=== PATIENT | female | born 1965 | race African-American/Black ===

== ENCOUNTER 2017-03-14 10:05 | Inpatient (IN) | payer MEDICAID ==
[~2017-03-14] VITALS: Ht 175.3 cm; Wt 53.1 kg
[2017-03-14] VITALS (11 sets, daily range): BP systolic 55–85; BP diastolic 28–52
[2017-03-14] MEDS ORDERED: ACETAMINOPHEN 325MG TABLET PO STA (10:33)
[2017-03-14] MEDS ORDERED: SODIUM CHLORIDE 0.9% 1000ML BAG (SEPSIS BOLUS) IV ONE (10:45)
[2017-03-14] MEDS ORDERED: VANCOMYCIN 1 G PREMIX 200 ML IV SCH ×2 (11:00→13:45)
[2017-03-14 11:07] LABS: HEMATOCRIT. 36.5 % (36.0-48.0); HEMOGLOBIN. 11.6 g/dL (12.0-16.0); MEAN CORPUSCULAR HEMOGLOBIN 29.2 pg (28.0-32.0); MEAN CORPUSCULAR HGB CONC 31.8 g/dL (31.0-37.0); MEAN CORPUSCULAR VOLUME 91.8 fL (81.0-99.0); MEAN PLATELET VOLUME 9.3 fl (7.4-10.4); PLATELET 325 x1000/uL (130-400); RED BLOOD CELL COUNT 3.98 mill/uL (4.2-5.4); RED CELL DISTRIBUTION WIDTH 15.2 % (11.6-14.6); WHITE BLOOD COUNT 30.1 x1000/uL (4.5-11.0)
[2017-03-14 11:08] LABS: DIFFERENTIAL COMMENT 1
[2017-03-14 11:22] LABS: ALANINE AMINOTRANSFERASE 11 IU/L (13-61); ALBUMIN 2.3 g/dL (3.4-5.0); ANION GAP 18; CALCIUM 8.6 mg/dL (8.5-10.1); CARBON DIOXIDE 25 mEq/L (21-32); CHLORIDE 96 mEq/L (98-107); ETHANOL BLOOD < 10 mg/dL; INDEX HEMOLYSI 1 (1-3); INDEX ICTERIC 1 (1-4); INDEX LIPEMIC 1 (1-3); UREA NITROGEN BLOOD 26 mg/dL (7-21); eGFR 28 mL/min (>60)
[2017-03-14 11:27] LABS: PLATELET ESTIMATE NORMAL
[2017-03-14 11:28] LABS: ANISOCYTOSIS 1+; GIANT PLATELETS FEW
[2017-03-14] MEDS: PIPERACILLIN SODIUM/TAZOBACTAM 4.5 G in DEXT 5% WATER 100 ML IV SCH ×2 (11:58→13:02)
[2017-03-14] MEDS ORDERED: KCL 10MEQ/50ML PREMIX 100 ML IV SCH (12:15)
[2017-03-14] MEDS ORDERED: POTASSIUM CHLORIDE 20MEQ TABLET SR PO ONE (12:15)
[2017-03-14 12:19] LABS: INR 1.3; PROTHROMBIN TIME 13.1 sec
[2017-03-14 12:27] LABS: CLARITY URINE TURBID (CLEAR); COLOR URINE DARK YELLOW (YELLOW); GLUCOSE URINE NEGATIVE (NEGATIVE); KETONES URINE NEGATIVE (NEGATIVE); LEUKOCYTE ESTERASE URINE 3+ (NEGATIVE); NITRITE URINE NEGATIVE (NEGATIVE); OCCULT BLOOD URINE 3+ (NEGATIVE); PROTEIN URINE 3+ (NEGATIVE); SPECIFIC GRAVITY URINE 1.013 (1.005-1.030)
[2017-03-14] MEDS ORDERED: ACETAMINOPHEN 650MG SUPP PR ONE (12:45)
[2017-03-14 12:46] LABS: *AMPHETAMINES SCREEN URINE NEGATIVE (NEGATIVE); *BARBITURATES SCREEN URINE NEGATIVE (NEGATIVE); *BENZODIAZEPINES SCREEN URINE NEGATIVE (NEGATIVE); *COCAINE SCREEN URINE NEGATIVE (NEGATIVE); CANNABINOID URINE SCREEN NEGATIVE (NEGATIVE); ECSTASY MDMA SCREEN URINE NEGATIVE (NEGATIVE); METHADONE URINE SCREEN NEGATIVE (NEGATIVE); OPIATES URINE SCREEN NEGATIVE (NEGATIVE); PHENCYCLIDINE URINE SCREEN PRESUMTIVE POSITIVE (NEGATIVE)
[2017-03-14 13:01] LABS: BACTERIA URINE 3+; SQUAMOUS EPITHELIAL CELL URINE FEW /lpf (RARE/1+)
[2017-03-14] MEDS ORDERED: ACETAMINOPHEN 325MG TABLET PO PRN (13:45)
[2017-03-14] MEDS ORDERED: ONDANSETRON HCL 4MG/2ML VIAL IV PRN (13:45)
[2017-03-14] MEDS ORDERED: IPRATROPIUM/ALBUTEROL 0.5-3(2.5)MG/3ML NEB INH PRN (13:45)
[2017-03-14] MEDS ORDERED: MAGNESIUM/ALUMINUM HYDROXIDE/SIMETHICONE 30ML UDC PO PRN (13:45)
[2017-03-14] MEDS ORDERED: CLONIDINE 0.1MG TABLET PO PRN (13:45)
[2017-03-14 15:09] LABS: CREATINE KINASE MB FRACTION 7.6 ng/mL (0.5-3.6); MAGNESIUM 1.8 mg/dL (1.8-2.4)
[2017-03-14 15:11] LABS: TROPONIN I 0.42 ng/mL (0.00-0.04)
[2017-03-14 15:13] LABS: CALCIUM 7.2 mg/dL (8.5-10.1)
[2017-03-14 15:17] LABS: PHOSPHORUS 2.6 mg/dL (2.5-4.9)
[2017-03-14] MEDS ORDERED: ZOSYN IVPB XX SCH (17:15)
[2017-03-14] MEDS ORDERED: SODIUM CHLORIDE 0.9% 500 ML IV NR (17:30)
[2017-03-14] MEDS ORDERED: ENOXAPARIN 30MG/0.3ML SYR SUBCUT SCH (18:00)
[2017-03-14] MEDS ORDERED: POTASSIUM CHLORIDE INJ 60 MEQ in DEXT 5% WATER 500 ML IV NR (18:30)
[2017-03-14] MEDS: PIPERACILLIN/TAZ 2.25G PREMIX 50 ML IV SCH (20:05)
[2017-03-14] MEDS: SODIUM CHLORIDE 0.9% 1,000 ML IV SCH ×2 (20:10→23:09)
[2017-03-14] MEDS ORDERED: NOREPINEPHRINE 4 MG in DEXT 5% WATER 246 ML IV PRN (21:00)
[2017-03-14 22:37] LABS: CLARITY URINE TURBID (CLEAR); COLOR URINE DARK YELLOW (YELLOW); GLUCOSE URINE NEGATIVE (NEGATIVE); KETONES URINE NEGATIVE (NEGATIVE); LEUKOCYTE ESTERASE URINE 3+ (NEGATIVE); NITRITE URINE NEGATIVE (NEGATIVE); OCCULT BLOOD URINE 3+ (NEGATIVE); PROTEIN URINE 3+ (NEGATIVE); SPECIFIC GRAVITY URINE 1.013 (1.005-1.030)
[2017-03-14 23:04] LABS: RBC URINE 25-50 /hpf (0-2); WBC URINE TNTC /hpf (0-2)
[2017-03-14 23:05] LABS: BACTERIA URINE 2+; SQUAMOUS EPITHELIAL CELL URINE 1+ /lpf (RARE/1+)
[2017-03-14 23:53] LABS: CREATINE KINASE MB FRACTION 13.3 ng/mL (0.5-3.6); TROPONIN I 0.32 ng/mL (0.00-0.04)
[2017-03-15] VITALS (87 sets, daily range): BP systolic 61–159; BP diastolic 27–81
[2017-03-15] MEDS: PIPERACILLIN/TAZ 2.25G PREMIX 50 ML IV SCH ×4 (02:12→21:27)
[2017-03-15] MEDS: NOREPINEPHRINE 32 MG in DEXT 5% WATER 468 ML IV PRN (04:24)
[2017-03-15 06:12] LABS: HEMATOCRIT. 31.7 % (36.0-48.0); HEMOGLOBIN. 10.1 g/dL (12.0-16.0); MEAN CORPUSCULAR HEMOGLOBIN 29.1 pg (28.0-32.0); MEAN CORPUSCULAR HGB CONC 31.9 g/dL (31.0-37.0); MEAN CORPUSCULAR VOLUME 91.2 fL (81.0-99.0); MEAN PLATELET VOLUME 9.5 fl (7.4-10.4); PLATELET 298 x1000/uL (130-400); RED BLOOD CELL COUNT 3.47 mill/uL (4.2-5.4); RED CELL DISTRIBUTION WIDTH 15.1 % (11.6-14.6)
[2017-03-15] MEDS: SODIUM CHLORIDE 0.9% 1,000 ML IV SCH ×3 (06:22→22:12)
[2017-03-15 06:27] LABS: ALANINE AMINOTRANSFERASE 28 IU/L (13-61); ALBUMIN 1.8 g/dL (3.4-5.0); ANION GAP 19; CALCIUM 6.8 mg/dL (8.5-10.1); CARBON DIOXIDE 20 mEq/L (21-32); CHLORIDE 100 mEq/L (98-107); INDEX HEMOLYSI 1 (1-3); INDEX ICTERIC 1 (1-4); INDEX LIPEMIC 1 (1-3); UREA NITROGEN BLOOD 38 mg/dL (7-21)
[2017-03-15 06:40] LABS: HDL CHOLESTEROL 10 mg/dL (40-59); THYROID STIMULATING HORMONE 0.52 uIU/mL (0.36-3.74); TRIGLYCERIDE 96 mg/dL (0-150); eGFR 20 mL/min (>60)
[2017-03-15 06:48] LABS: LDL CHOLESTEROL 8 mg/dL (5-100)
[2017-03-15 06:55] LABS: DIFFERENTIAL COMMENT 1; WHITE BLOOD COUNT 58.2 x1000/uL (4.5-11.0)
[2017-03-15] MEDS ORDERED: VANCOMYCIN 500 MG PREMIX 100 ML IV SCH ×2 (07:00→13:00)
[2017-03-15 07:40] LABS: ANISOCYTOSIS 1+; PLATELET ESTIMATE NORMAL
[2017-03-15 08:37] LABS: MAGNESIUM 1.9 mg/dL (1.8-2.4); PHOSPHORUS 3.7 mg/dL (2.5-4.9)
[2017-03-15] MEDS ORDERED: POTASSIUM CHLORIDE INJ 40 MEQ in DEXT 5% WATER 250 ML IV NR (10:00)
[2017-03-15 11:19] LABS: AMYLASE 20 IU/L (25-115); INDEX HEMOLYSI 2 (1-3); LIPASE 43 IU/L (73-393)
[2017-03-15] MEDS: QUETIAPINE FUMARATE 25MG TABLET PO SCH ×4 (11:30→21:27)
[2017-03-15] MEDS: PANTOPRAZOLE SODIUM 40 MG/VIAL IV SCH (11:35)
[2017-03-15] MEDS ORDERED: LORAZEPAM 2MG/ML CPJ IV PRN (12:00)
[2017-03-15] MEDS: ASPIRIN 81MG TABLET PO SCH (15:58)
[2017-03-15] MEDS: ENOXAPARIN 60MG/0.6ML SYR SUBCUT SCH (17:17)
[2017-03-15] MEDS ORDERED: QUETIAPINE FUMARATE 25MG TABLET PO SCH (21:00)
[2017-03-15] MEDS: ATORVASTATIN CALCIUM 10MG TABLET PO SCH (21:27)
[2017-03-16] VITALS (95 sets, daily range): BP systolic 63–189; BP diastolic 17–99
[2017-03-16 05:40] LABS: HEMATOCRIT. 32.9 % (36.0-48.0); HEMOGLOBIN. 10.6 g/dL (12.0-16.0); MEAN CORPUSCULAR HGB CONC 32.3 g/dL (31.0-37.0); MEAN CORPUSCULAR VOLUME 89.8 fL (81.0-99.0); MEAN PLATELET VOLUME 9.6 fl (7.4-10.4); PLATELET 243 x1000/uL (130-400); RED BLOOD CELL COUNT 3.67 mill/uL (4.2-5.4); RED CELL DISTRIBUTION WIDTH 15.1 % (11.6-14.6)
[2017-03-16 05:46] LABS: DIFFERENTIAL COMMENT 1
[2017-03-16] MEDS: SODIUM CHLORIDE 0.9% 1,000 ML IV SCH ×3 (05:46→21:53)
[2017-03-16] MEDS: PIPERACILLIN/TAZ 2.25G PREMIX 50 ML IV SCH ×3 (05:46→21:11)
[2017-03-16 05:48] LABS: WHITE BLOOD COUNT 43.7 x1000/uL (4.5-11.0)
[2017-03-16 06:14] LABS: CALCIUM 7.5 mg/dL (8.5-10.1)
[2017-03-16 06:40] LABS: TROPONIN I 3.8 ng/mL (0.00-0.04)
[2017-03-16 07:36] LABS: PLATELET ESTIMATE NORMAL
[2017-03-16] MEDS: QUETIAPINE FUMARATE 25MG TABLET PO SCH ×3 (09:00→21:11)
[2017-03-16] MEDS: ASPIRIN 81MG TABLET PO SCH ×2 (09:00→09:30)
[2017-03-16] MEDS: PANTOPRAZOLE SODIUM 40 MG/VIAL IV SCH ×2 (09:00→09:30)
[2017-03-16 09:46] LABS: PHOSPHORUS 3.2 mg/dL (2.5-4.9)
[2017-03-16] MEDS ORDERED: POTASSIUM CHLORIDE INJ 60 MEQ in DEXT 5% WATER 500 ML IV SCH (10:00)
[2017-03-16] MEDS ORDERED: VANCOMYCIN 1 G PREMIX 200 ML IV SCH (11:00)
[2017-03-16] MEDS: NOREPINEPHRINE 32 MG in DEXT 5% WATER 468 ML IV PRN ×2 (12:05→23:18)
[2017-03-16] MEDS: ENOXAPARIN 60MG/0.6ML SYR SUBCUT SCH (16:00)
[2017-03-16] MEDS: ATORVASTATIN CALCIUM 10MG TABLET PO SCH (21:11)
[2017-03-17] VITALS (102 sets, daily range): BP systolic 64–130; BP diastolic 21–96
[2017-03-17] MEDS: PIPERACILLIN/TAZ 2.25G PREMIX 50 ML IV SCH ×2 (05:28→13:41)
[2017-03-17 05:34] LABS: BASOPHILS % 0.2 % (0.0-2.0); EOSINOPHILS % 1.1 % (0.0-5.0); HEMATOCRIT. 35.4 % (36.0-48.0); HEMOGLOBIN. 11.5 g/dL (12.0-16.0); LYMPHOCYTES % 7.4 % (20.0-50.0); MEAN CORPUSCULAR HEMOGLOBIN 29.2 pg (28.0-32.0); MEAN CORPUSCULAR HGB CONC 32.5 g/dL (31.0-37.0); MEAN CORPUSCULAR VOLUME 89.9 fL (81.0-99.0); MEAN PLATELET VOLUME 9.7 fl (7.4-10.4); MONOCYTES % 2.5 % (2.0-8.0); NEUTROPHILS % 88.8 % (40.0-76.0); PLATELET 233 x1000/uL (130-400); RED BLOOD CELL COUNT 3.94 mill/uL (4.2-5.4); WHITE BLOOD COUNT 23.8 x1000/uL (4.5-11.0)
[2017-03-17] MEDS: SODIUM CHLORIDE 0.9% 1,000 ML IV SCH ×2 (05:57→11:31)
[2017-03-17 06:23] LABS: ANION GAP 14; CALCIUM 7.6 mg/dL (8.5-10.1); CARBON DIOXIDE 24 mEq/L (21-32); CHLORIDE 107 mEq/L (98-107); INDEX HEMOLYSI 1 (1-3); INDEX ICTERIC 1 (1-4); INDEX LIPEMIC 1 (1-3); UREA NITROGEN BLOOD 13 mg/dL (7-21); eGFR > 60 mL/min (>60)
[2017-03-17] MEDS: ASPIRIN 81MG TABLET PO SCH (09:14)
[2017-03-17] MEDS: PANTOPRAZOLE SODIUM 40 MG/VIAL IV SCH (09:14)
[2017-03-17] MEDS: QUETIAPINE FUMARATE 25MG TABLET PO SCH ×2 (09:14→21:40)
[2017-03-17] MEDS ORDERED: ENOXAPARIN 30MG/0.3ML SYR SUBCUT SCH (11:00)
[2017-03-17] MEDS: ENOXAPARIN 40MG/0.4ML SYR SUBCUT SCH (11:28)
[2017-03-17] MEDS ORDERED: POTASSIUM CHLORIDE 20MEQ TABLET SR PO NR (12:30)
[2017-03-17] MEDS: AMPICILLIN 2,000 MG in SODIUM CHLORIDE 0.9% 100 ML IV SCH (17:36)
[2017-03-17] MEDS: ATORVASTATIN CALCIUM 10MG TABLET PO SCH (21:40)
[2017-03-18] VITALS (98 sets, daily range): BP systolic 64–143; BP diastolic 39–87
[2017-03-18] MEDS: AMPICILLIN 2,000 MG in SODIUM CHLORIDE 0.9% 100 ML IV SCH ×5 (00:17→23:22)
[2017-03-18 05:18] LABS: BASOPHILS % 0.3 % (0.0-2.0); EOSINOPHILS % 1.9 % (0.0-5.0); HEMATOCRIT. 36.3 % (36.0-48.0); HEMOGLOBIN. 11.8 g/dL (12.0-16.0); LYMPHOCYTES % 14.2 % (20.0-50.0); MEAN CORPUSCULAR HEMOGLOBIN 29.1 pg (28.0-32.0); MEAN CORPUSCULAR HGB CONC 32.4 g/dL (31.0-37.0); MEAN CORPUSCULAR VOLUME 89.7 fL (81.0-99.0); MEAN PLATELET VOLUME 9.6 fl (7.4-10.4); MONOCYTES % 4.2 % (2.0-8.0); NEUTROPHILS % 79.4 % (40.0-76.0); PLATELET 252 x1000/uL (130-400); RED BLOOD CELL COUNT 4.05 mill/uL (4.2-5.4); RED CELL DISTRIBUTION WIDTH 15.1 % (11.6-14.6); WHITE BLOOD COUNT 15.1 x1000/uL (4.5-11.0)
[2017-03-18 06:28] LABS: ANION GAP 14; CALCIUM 8.4 mg/dL (8.5-10.1); CARBON DIOXIDE 27 mEq/L (21-32); CHLORIDE 103 mEq/L (98-107); INDEX HEMOLYSI 1 (1-3); INDEX ICTERIC 1 (1-4); INDEX LIPEMIC 1 (1-3); UREA NITROGEN BLOOD 7 mg/dL (7-21); eGFR > 60 mL/min (>60)
[2017-03-18] MEDS: PANTOPRAZOLE SODIUM 40 MG/VIAL IV SCH (09:50)
[2017-03-18] MEDS: ENOXAPARIN 40MG/0.4ML SYR SUBCUT SCH (09:50)
[2017-03-18] MEDS: ASPIRIN 81MG TABLET PO SCH (09:50)
[2017-03-18] MEDS: QUETIAPINE FUMARATE 25MG TABLET PO SCH ×3 (09:50→20:34)
[2017-03-18] MEDS: POTASSIUM CHLORIDE 20MEQ TABLET SR PO SCH ×2 (10:15→20:34)
[2017-03-18] MEDS ORDERED: NOREPINEPHRINE 8 MG in DEXTROSE 5% WATER 250 ML IV PRN (19:45)
[2017-03-18] MEDS: ATORVASTATIN CALCIUM 10MG TABLET PO SCH (20:34)
[2017-03-19] VITALS (34 sets, daily range): BP systolic 67–127; BP diastolic 32–77
[2017-03-19 05:37] LABS: BASOPHILS % 0.3 % (0.0-2.0); EOSINOPHILS % 2.5 % (0.0-5.0); HEMOGLOBIN. 11.1 g/dL (12.0-16.0); LYMPHOCYTES % 18.4 % (20.0-50.0); MEAN CORPUSCULAR HEMOGLOBIN 29.1 pg (28.0-32.0); MEAN CORPUSCULAR HGB CONC 32.6 g/dL (31.0-37.0); MEAN CORPUSCULAR VOLUME 89.5 fL (81.0-99.0); MEAN PLATELET VOLUME 9.6 fl (7.4-10.4); MONOCYTES % 6.4 % (2.0-8.0); NEUTROPHILS % 72.4 % (40.0-76.0); PLATELET 311 x1000/uL (130-400); RED CELL DISTRIBUTION WIDTH 15.2 % (11.6-14.6); WHITE BLOOD COUNT 14.4 x1000/uL (4.5-11.0)
[2017-03-19] MEDS: AMPICILLIN 2,000 MG in SODIUM CHLORIDE 0.9% 100 ML IV SCH (05:43)
[2017-03-19 06:47] LABS: CHLORIDE 103 mEq/L (98-107); INDEX HEMOLYSI 1 (1-3); INDEX ICTERIC 1 (1-4); INDEX LIPEMIC 1 (1-3)
[2017-03-19 08:03] LABS: ANION GAP 15; CALCIUM 7.6 mg/dL (8.5-10.1); CARBON DIOXIDE 29 mEq/L (21-32); MAGNESIUM 1.3 mg/dL (1.8-2.4); PHOSPHORUS 4.7 mg/dL (2.5-4.9); UREA NITROGEN BLOOD 8 mg/dL (7-21); eGFR > 60 mL/min (>60)
[2017-03-19] MEDS: ENOXAPARIN 40MG/0.4ML SYR SUBCUT SCH (08:19)
[2017-03-19] MEDS: PANTOPRAZOLE SODIUM 40 MG/VIAL IV SCH (08:19)
[2017-03-19] MEDS: ASPIRIN 81MG TABLET PO SCH (08:19)
[2017-03-19] MEDS: POTASSIUM CHLORIDE 20MEQ TABLET SR PO SCH (08:19)
[2017-03-19] MEDS: QUETIAPINE FUMARATE 25MG TABLET PO SCH (08:19)
[2017-03-19] MEDS ORDERED: POTASSIUM CHLORIDE INJ 40 MEQ in DEXT 5% WATER 500 ML IV NR (08:30)
== END 2017-03-19 10:02 | disposition left against medical advice (07) | DRG 720 ==
LOC: ER 10:05 → 5EST 14:03 → CVICU 21:33
PROVIDERS: ADMIT Internal Medicine; ATTEND Internal Medicine
PROC: 05HA33Z Insertion of Infusion Device into Left Brachial Vein, Percutaneous Approach (ICD-10-PCS; principal; 2017-03-14)
PROC: B54NZZA Ultrasonography of Left Upper Extremity Veins, Guidance (ICD-10-PCS; 2017-03-14)
DX: A41.51 Sepsis due to Escherichia coli [E. coli] (principal); N17.0 Acute kidney failure with tubular necrosis; R65.21 Severe sepsis with septic shock; E43 Unspecified severe protein-calorie malnutrition; G93.40 Encephalopathy, unspecified; N13.2 Hydronephrosis with renal and ureteral calculous obstruction; M62.82 Rhabdomyolysis; N39.0 Urinary tract infection, site not specified; E87.2 Acidosis; E83.51 Hypocalcemia; E87.6 Hypokalemia; F20.9 Schizophrenia, unspecified; I10 Essential (primary) hypertension; D63.8 Anemia in other chronic diseases classified elsewhere; F39 Unspecified mood [affective] disorder; F16.10 Hallucinogen abuse, uncomplicated; Z53.21 Procedure and treatment not carried out due to patient leaving prior to being seen by health care provider; N30.00 Acute cystitis without hematuria; L03.90 Cellulitis, unspecified; I25.2 Old myocardial infarction; Z59.0 Homelessness; Z68.1 Body mass index [BMI] 19.9 or less, adult; Z87.891 Personal history of nicotine dependence
CPT/HCPCS: 36415; 36569; 51702; 71010; 74000; 74176; 76770; 76937; 80048; 80053; 80061; 80202; 80305; 81001; 82150; 82550; 82553; 82570; 82962; 83605; 83690; 83735; 84100; 84156; 84443; 84484; 85025; 85610; 85651; 86140; 87015; 87040; 87045; 87077; 87086; 87186; 87427; 87449; 87493; 93005; 93970; 96365; 96366; 96368; 99291; C1725; C1769; C9113; G0482; J0290; J1650; J2060; J2405; J2543; J3370; J3480; J3490; J7030; J7040; J7050; J7060; A4315

== ENCOUNTER 2017-08-06 14:48 | Emergency (ER) | payer MEDICAID ==
[~2017-08-06] VITALS: Ht 175.3 cm; Wt 54.0 kg
[2017-08-06 15:40] LABS: BASOPHILS % 1.2 % (0.0-2.0); EOSINOPHILS % 2.1 % (0.0-5.0); HEMATOCRIT. 41.9 % (36.0-48.0); LYMPHOCYTES % 36.5 % (20.0-50.0); MEAN CORPUSCULAR HEMOGLOBIN 30.9 pg (28.0-32.0); MEAN CORPUSCULAR VOLUME 92.4 fL (81.0-99.0); MEAN PLATELET VOLUME 7.7 fl (7.4-10.4); MONOCYTES % 4.2 % (2.0-8.0); PLATELET 337 x1000/uL (130-400); RED BLOOD CELL COUNT 4.53 mill/uL (4.2-5.4); RED CELL DISTRIBUTION WIDTH 14.1 % (11.6-14.6)
[2017-08-06 15:52] LABS: CARBON DIOXIDE 27 mEq/L (21-32); CHLORIDE 103 mEq/L (98-107); ETHANOL BLOOD 160 mg/dL
[2017-08-06 16:54] LABS: *AMPHETAMINES SCREEN URINE NEGATIVE (NEGATIVE); *BARBITURATES SCREEN URINE NEGATIVE (NEGATIVE); *BENZODIAZEPINES SCREEN URINE NEGATIVE (NEGATIVE); *COCAINE SCREEN URINE NEGATIVE (NEGATIVE); CANNABINOID URINE SCREEN NEGATIVE (NEGATIVE); METHADONE URINE SCREEN NEGATIVE (NEGATIVE); OPIATES URINE SCREEN NEGATIVE (NEGATIVE); PHENCYCLIDINE URINE SCREEN PRESUMTIVE POSITIVE (NEGATIVE)
[2017-08-06 20:59] VITALS: BP 105/51
== END 2017-08-06 20:59 | disposition home or self-care (01) ==
LOC: ER 14:57
DX: F19.10 Other psychoactive substance abuse, uncomplicated (principal)
CPT/HCPCS: 36415; 80053; 80305; 85025; 99284; A4217; G0482; Z7610

== ENCOUNTER 2018-11-06 16:31 | Inpatient (IN) | payer SELFPAY ==
[~2018-11-06] VITALS: Ht 175.3 cm; Wt 66.2 kg
[2018-11-06] MEDS ORDERED: VANCOMYCIN 1 G PREMIX 200 ML IV ONE (21:30)
[2018-11-06] MEDS ORDERED: SODIUM CHLORIDE 0.9% 1000ML BAG (SEPSIS BOLUS) IV ONE (21:30)
[2018-11-06] MEDS ORDERED: PIPERACILLIN/TAZ 3.375G PREMIX 50 ML IV ONE (21:30)
[2018-11-06 22:02] LABS: BASOPHILS % 0.4 % (0.0-2.0); EOSINOPHILS % 0.6 % (0.0-5.0); HEMATOCRIT. 35.3 % (36.0-48.0); HEMOGLOBIN. 11.7 g/dL (12.0-16.0); LYMPHOCYTES % 17.5 % (20.0-50.0); MEAN CORPUSCULAR HEMOGLOBIN 31.4 pg (28.0-32.0); MEAN CORPUSCULAR VOLUME 94.4 fL (81.0-99.0); MEAN PLATELET VOLUME 7.5 fl (7.4-10.4); MONOCYTES % 3.9 % (2.0-8.0); NEUTROPHILS % 77.6 % (40.0-76.0); PLATELET 318 x1000/uL (130-400); RED BLOOD CELL COUNT 3.74 mill/uL (4.2-5.4); RED CELL DISTRIBUTION WIDTH 13.7 % (11.6-14.6)
[2018-11-06 22:08] LABS: CHLORIDE 113 mEq/L (98-107)
[2018-11-06 22:09] LABS: PROTHROMBIN TIME 9.9 sec (9.1-11.1)
[2018-11-06] MEDS ORDERED: POTASSIUM CHLORIDE 20MEQ TABLET SR PO ONE (23:30)
[2018-11-06 23:54] LABS: BG BASE EXCESS 1.9 mmol/L (-2.0-2.0); BG CARBOXYHEMOGLOBIN 3.2 % (0.5-1.5); BG DEOXYHEMOGLOBIN 2.4 % (0.0-5.0); BG FRACTION INSPIRED OXYGEN 21; BG HCO3 ACT 26.2 mmol/L (22.0-26.0); BG METHEMOGLOBIN 0.3 % (0.0-1.5); BG OXYGEN SATURATION 97.5 % (92.0-98.5); BG OXYHEMOGLOBIN 94.1 % (94.0-97.0); BG PH 7.434 (7.350-7.450); BG PO2 94.4 mmHg (75.0-100.0); BG SAMPLE SITE LEFT RADIAL; BG TOTAL HEMOGLOBIN 12.2 g/dL (12.0-18.0); BG VENT MODE ROOM AIR
[2018-11-07] MEDS ORDERED: ALBUTEROL (0.083%) 2.5MG/3ML NEB HHN ONE (00:30)
[2018-11-07] MEDS ORDERED: IPRATROPIUM BROMIDE (0.02%) 0.5MG/2.5ML NEB HHN ONE (00:30)
[2018-11-07 02:15] LABS: CLARITY URINE CLOUDY (CLEAR); COLOR URINE YELLOW (YELLOW); KETONES URINE TRACE (NEGATIVE); LEUKOCYTE ESTERASE URINE 2+ (NEGATIVE); NITRITE URINE POSITIVE (NEGATIVE); OCCULT BLOOD URINE NEGATIVE (NEGATIVE); PROTEIN URINE TRACE (NEGATIVE); SPECIFIC GRAVITY URINE 1.023 (1.005-1.030)
[2018-11-07 04:30] VITALS: BP 99/65
[2018-11-07] MEDS ORDERED: CLONIDINE 0.1MG TABLET PO PRN (06:00)
[2018-11-07] MEDS ORDERED: IPRATROPIUM/ALBUTEROL 0.5-3(2.5)MG/3ML NEB INH PRN (06:00)
[2018-11-07] MEDS ORDERED: HYDROCODONE/ACETAMINOPHEN 5/325MG TABLET PO PRN (06:00)
[2018-11-07] MEDS ORDERED: ONDANSETRON HCL 4MG/2ML INJ IV PRN (06:00)
[2018-11-07] MEDS ORDERED: LEVOFLOXACIN 500MG PREMIX 100 ML IV SCH (06:00)
[2018-11-07] MEDS ORDERED: ACETAMINOPHEN 325MG TABLET PO PRN (06:00)
[2018-11-07 08:00] VITALS: BP 84/52
[2018-11-07] MEDS ORDERED: SODIUM CHLORIDE 0.45% 1,000 ML IV SCH (08:00)
[2018-11-07] MEDS: ENOXAPARIN 40MG/0.4ML SYR SUBCUT SCH (09:42)
[2018-11-07] MEDS: LEVOFLOXACIN 500MG PREMIX 100 ML IV SCH (09:43)
[2018-11-07] MEDS: VANCOMYCIN 1250MG in DEXTROSE 5% WATER 250ML IV SCH ×2 (10:47→22:09)
[2018-11-07 12:10] VITALS: BP 91/59
[2018-11-07 16:00] VITALS: BP 87/56
[2018-11-07] MEDS: SILVER SULFADIAZINE 1% CREAM 25GM TOP SCH (18:44)
[2018-11-07 20:00] VITALS: BP 78/51
[2018-11-07] MEDS ORDERED: SODIUM CHLORIDE 0.9% 500 ML IV NR ×3 (21:15→22:15)
[2018-11-08] VITALS: BP 96/63
[2018-11-08 04:00] VITALS: BP 102/65
[2018-11-08 07:45] LABS: BASOPHILS % 0.5 % (0.0-2.0); EOSINOPHILS % 0.3 % (0.0-5.0); HEMATOCRIT. 35.4 % (36.0-48.0); HEMOGLOBIN. 11.7 g/dL (12.0-16.0); LYMPHOCYTES % 26.7 % (20.0-50.0); MEAN CORPUSCULAR VOLUME 93.9 fL (81.0-99.0); MONOCYTES % 5.1 % (2.0-8.0); NEUTROPHILS % 67.4 % (40.0-76.0); PLATELET 294 x1000/uL (130-400); RED BLOOD CELL COUNT 3.77 mill/uL (4.2-5.4); RED CELL DISTRIBUTION WIDTH 13.3 % (11.6-14.6)
[2018-11-08 08:00] VITALS: BP 100/65
[2018-11-08] MEDS: LEVOFLOXACIN 500MG PREMIX 100 ML IV SCH (08:30)
[2018-11-08] MEDS: ENOXAPARIN 40MG/0.4ML SYR SUBCUT SCH (08:30)
[2018-11-08 08:34] LABS: CHLORIDE 108 mEq/L (98-107)
[2018-11-08] MEDS: SILVER SULFADIAZINE 1% CREAM 25GM TOP SCH (08:45)
[2018-11-08] MEDS: VANCOMYCIN 1250MG in DEXTROSE 5% WATER 250ML IV SCH (10:14)
[2018-11-08 12:00] VITALS: BP 91/63
[2018-11-08 15:57] VITALS: BP 91/63
[2018-11-08 16:00] VITALS: BP 96/64
[2018-11-08] MEDS ORDERED: VANCOMYCIN 1 G PREMIX 200 ML IV SCH (22:00)
== END 2018-11-08 18:20 | disposition home or self-care (01) | DRG 380 ==
LOC: ER 16:31 → EDBEDREQSVC 11-07 00:35 → EDBEDREQTM 11-07 00:35 → EDBEDREQ 11-07 00:35 → EDBEDREQDT 11-07 00:35 → 6WST 11-07 00:36 → ENRESERV 11-07 02:13
PROVIDERS: ADMIT Hospitalist; ATTEND Hospitalist
PROC: 0JBQ0ZZ Excision of Right Foot Subcutaneous Tissue and Fascia, Open Approach (ICD-10-PCS; principal; 2018-11-07)
DX: L97.319 Non-pressure chronic ulcer of right ankle with unspecified severity (principal); E87.0 Hyperosmolality and hypernatremia; F20.9 Schizophrenia, unspecified; G62.9 Polyneuropathy, unspecified; J45.901 Unspecified asthma with (acute) exacerbation; L03.115 Cellulitis of right lower limb; J44.9 Chronic obstructive pulmonary disease, unspecified; N39.0 Urinary tract infection, site not specified; S80.212A Abrasion, left knee, initial encounter; F17.210 Nicotine dependence, cigarettes, uncomplicated; W18.39XA Other fall on same level, initial encounter; Y93.89 Activity, other specified; Y92.89 Other specified places as the place of occurrence of the external cause; Y99.8 Other external cause status; Z59.0 Homelessness
CPT/HCPCS: 36415; 36600; 71045; 80202; 82375; 82805; 83605; 84145; 84484; 87070; 87077; 87186; 93005; 93970; 94640; 96365; 96366; 96368; 99291; C1893; J1650; J1956; J2543; J3370; J7030; J7040; J7060; J7611

== ENCOUNTER 2018-11-09 18:43 | Emergency (ER) | payer SELFPAY ==
[~2018-11-09] VITALS: Ht 175.3 cm; Wt 62.0 kg
[2018-11-09] MEDS ORDERED: BACITRACIN ZINC OINT UDPKT TOP ONE (21:45)
[2018-11-09 22:05] VITALS: BP 100/66
== END 2018-11-09 22:09 | disposition home or self-care (01) ==
LOC: ER 18:43
DX: L97.529 Non-pressure chronic ulcer of other part of left foot with unspecified severity (principal); F17.200 Nicotine dependence, unspecified, uncomplicated
CPT/HCPCS: 99283

== ENCOUNTER 2018-11-27 07:00 | Emergency (ER) | payer SELFPAY ==
[~2018-11-27] VITALS: Ht 172.7 cm; Wt 70.0 kg
[2018-11-27] MEDS ORDERED: BACITRACIN ZINC OINT UDPKT TOP ONE (10:45)
[2018-11-27] MEDS ORDERED: IBUPROFEN 600MG TABLET PO ONE (10:45)
[2018-11-27] MEDS ORDERED: SULFAMETHOXAZOLE/TRIMETHOPRIM 800/160MG TABLET PO ONE (10:45)
[2018-11-27] MEDS ORDERED: CEPHALEXIN 250MG CAPSULE PO ONE (10:45)
[2018-11-27 12:54] LABS: BASOPHILS % 0.5 % (0.0-2.0); EOSINOPHILS % 1.8 % (0.0-5.0); HEMATOCRIT. 42.8 % (36.0-48.0); HEMOGLOBIN. 14.1 g/dL (12.0-16.0); LYMPHOCYTES % 18.5 % (20.0-50.0); MEAN CORPUSCULAR HEMOGLOBIN 30.3 pg (28.0-32.0); MEAN PLATELET VOLUME 8.3 fl (7.4-10.4); NEUTROPHILS % 74.2 % (40.0-76.0); PLATELET 351 x1000/uL (130-400); RED BLOOD CELL COUNT 4.66 mill/uL (4.2-5.4); RED CELL DISTRIBUTION WIDTH 13.6 % (11.6-14.6)
[2018-11-27 12:57] LABS: CHLORIDE 111 mEq/L (98-107)
[2018-11-27] MEDS ORDERED: POTASSIUM CHLORIDE 20MEQ TABLET SR PO ONE (13:15)
[2018-11-27 17:15] VITALS: BP 132/67
[2018-11-27] MEDS ORDERED: POTASSIUM CHLORIDE 20MEQ TABLET SR PO NR (17:29)
== END 2018-11-27 17:30 | disposition home or self-care (01) ==
LOC: ER 07:00
DX: L97.519 Non-pressure chronic ulcer of other part of right foot with unspecified severity (principal); E87.6 Hypokalemia; R03.0 Elevated blood-pressure reading, without diagnosis of hypertension; F17.210 Nicotine dependence, cigarettes, uncomplicated; Z98.890 Other specified postprocedural states
CPT/HCPCS: 36415; 73610; 83735; 93923; 93970; 99284

== ENCOUNTER 2018-11-27 18:28 | Emergency (ER) | payer SELFPAY ==
[~2018-11-27] VITALS: Ht 175.3 cm; Wt 61.0 kg
[2018-11-27 18:31] VITALS: BP 113/77
== END 2018-11-27 20:15 | disposition left against medical advice (07) ==
LOC: ER 18:28
DX: Z53.21 Procedure and treatment not carried out due to patient leaving prior to being seen by health care provider (principal)

== ENCOUNTER 2018-11-28 05:31 | Emergency (ER) | payer SELFPAY ==
[~2018-11-28] VITALS: Ht 172.7 cm; Wt 63.5 kg
[2018-11-28] MEDS ORDERED: IBUPROFEN 600MG TABLET PO ONE (07:00)
[2018-11-28 08:00] VITALS: BP 95/65
== END 2018-11-28 08:10 | disposition home or self-care (01) ==
LOC: ER 05:31
DX: L97.519 Non-pressure chronic ulcer of other part of right foot with unspecified severity (principal); J45.909 Unspecified asthma, uncomplicated; F20.9 Schizophrenia, unspecified; F17.200 Nicotine dependence, unspecified, uncomplicated
CPT/HCPCS: 99283

== ENCOUNTER 2018-11-28 22:29 | Emergency (ER) | payer SELFPAY ==
[~2018-11-28] VITALS: Ht 175.3 cm; Wt 62.0 kg
[2018-11-28 23:33] VITALS: BP 111/73
[2018-11-29] MEDS ORDERED: BACITRACIN ZINC OINT UDPKT TOP ONE (02:30)
== END 2018-11-29 06:08 | disposition home or self-care (01) ==
LOC: ER 22:29
DX: L97.519 Non-pressure chronic ulcer of other part of right foot with unspecified severity (principal); J20.9 Acute bronchitis, unspecified; L03.115 Cellulitis of right lower limb; J45.909 Unspecified asthma, uncomplicated; F20.9 Schizophrenia, unspecified
CPT/HCPCS: 71045; 73630; 99283

== ENCOUNTER 2018-12-01 08:44 | Emergency (ER) | payer SELFPAY ==
[~2018-12-01] VITALS: Ht 165.1 cm; Wt 64.0 kg
[2018-12-01] MEDS ORDERED: TETANUS, DIPHTHERIA, PERTUSSIS VAC/PF 0.5ML (>7YR OLD) IM ONE (09:45)
[2018-12-01] MEDS ORDERED: LIDOCAINE HCL/PF 1% 10 MG/ML 5ML VIAL IJ ONE (09:45)
[2018-12-01] MEDS ORDERED: BACITRACIN ZINC OINT UDPKT TOP ONE (09:45)
[2018-12-01 12:37] LABS: BASOPHILS % 0.1 % (0.0-2.0); HEMATOCRIT. 43.2 % (36.0-48.0); LYMPHOCYTES % 7.1 % (20.0-50.0); MEAN CORPUSCULAR HEMOGLOBIN 29.5 pg (28.0-32.0); MEAN CORPUSCULAR VOLUME 90.7 fL (81.0-99.0); MEAN PLATELET VOLUME 8.1 fl (7.4-10.4); NEUTROPHILS % 87.8 % (40.0-76.0); PLATELET 231 x1000/uL (130-400); RED BLOOD CELL COUNT 4.76 mill/uL (4.2-5.4); RED CELL DISTRIBUTION WIDTH 13.6 % (11.6-14.6)
[2018-12-01 12:46] LABS: CHLORIDE 108 mEq/L (98-107)
[2018-12-01 12:52] LABS: ETHANOL BLOOD < 10 mg/dL
[2018-12-01 14:00] LABS: CLARITY URINE CLEAR (CLEAR); COLOR URINE YELLOW (YELLOW); KETONES URINE NEGATIVE (NEGATIVE); LEUKOCYTE ESTERASE URINE 1+ (NEGATIVE); NITRITE URINE POSITIVE (NEGATIVE); OCCULT BLOOD URINE NEGATIVE (NEGATIVE); PROTEIN URINE NEGATIVE (NEGATIVE); SPECIFIC GRAVITY URINE 1.006 (1.005-1.030); UROBILINOGEN URINE 0.2 E.U./dL (0.2-1.0)
[2018-12-01] MEDS ORDERED: ONDANSETRON HCL 4MG/2ML INJ IV ONE (14:00)
[2018-12-01] MEDS ORDERED: MORPHINE SULFATE 4 MG/ML CPJ (NOT FOR IM USE) IV ONE (14:00)
[2018-12-01] MEDS ORDERED: LIDOCAINE HCL 1% 20ML VIAL (Pyxis) INJ INFIL ONE (14:15)
[2018-12-01] MEDS ORDERED: CEFTRIAXONE SODIUM 250 MG/VIAL IM ONE (14:15)
[2018-12-01 14:33] LABS: *AMPHETAMINES SCREEN URINE NEGATIVE (NEGATIVE); *BARBITURATES SCREEN URINE NEGATIVE (NEGATIVE); *BENZODIAZEPINES SCREEN URINE NEGATIVE (NEGATIVE); *COCAINE SCREEN URINE PRESUMTIVE POSITIVE (NEGATIVE); METHADONE URINE SCREEN NEGATIVE (NEGATIVE); OPIATES URINE SCREEN NEGATIVE (NEGATIVE); PHENCYCLIDINE URINE SCREEN PRESUMTIVE POSITIVE (NEGATIVE)
[2018-12-01 14:34] LABS: CANNABINOID URINE SCREEN NEGATIVE (NEGATIVE)
[2018-12-01] MEDS ORDERED: ONDANSETRON HCL 4MG TABLET PO ONE (15:00)
[2018-12-01] MEDS ORDERED: MORPHINE SULFATE 10 MG/ML CPJ IV ONE (15:00)
[2018-12-02 09:59] VITALS: BP 115/82
== END 2018-12-02 10:23 | disposition home or self-care (01) ==
LOC: ER 08:59
DX: S02.2XXA Fracture of nasal bones, initial encounter for closed fracture (principal); S02.40CA Maxillary fracture, right side, initial encounter for closed fracture; S01.112A Laceration without foreign body of left eyelid and periocular area, initial encounter; N39.0 Urinary tract infection, site not specified; F16.10 Hallucinogen abuse, uncomplicated; F14.10 Cocaine abuse, uncomplicated; F20.9 Schizophrenia, unspecified; J45.909 Unspecified asthma, uncomplicated; W01.0XXA Fall on same level from slipping, tripping and stumbling without subsequent striking against object, initial encounter; Y93.89 Activity, other specified; Y92.018 Other place in single-family (private) house as the place of occurrence of the external cause
CPT/HCPCS: 12011; 36415; 70450; 70486; 80053; 80305; 80307; 80329; 81003; 85025; 90471; 90715; 96372; 99284; G0482; J0696; J3490

== ENCOUNTER 2018-12-03 07:18 | Inpatient (IN) | payer SELFPAY ==
[2018-12-03] VITALS (46 sets, daily range): BP systolic 62–138; BP diastolic 24–79
[~2018-12-03] VITALS: Ht 172.7 cm; Wt 69.4 kg
[2018-12-03] MEDS ORDERED: SODIUM CHLORIDE 0.9% 1,000 ML IV ONE ×2 (07:45)
[2018-12-03 08:49] LABS: BASOPHILS % 0.3 % (0.0-2.0); CHLORIDE 104 mEq/L (98-107); EOSINOPHILS % 0.2 % (0.0-5.0); HEMATOCRIT. 45.1 % (36.0-48.0); HEMOGLOBIN. 14.8 g/dL (12.0-16.0); INR 1.1; LYMPHOCYTES % 9.3 % (20.0-50.0); MEAN CORPUSCULAR HEMOGLOBIN 29.8 pg (28.0-32.0); MEAN CORPUSCULAR VOLUME 90.7 fL (81.0-99.0); MEAN PLATELET VOLUME 8.8 fl (7.4-10.4); MONOCYTES % 4.3 % (2.0-8.0); NEUTROPHILS % 85.9 % (40.0-76.0); PLATELET 179 x1000/uL (130-400); RED BLOOD CELL COUNT 4.97 mill/uL (4.2-5.4); RED CELL DISTRIBUTION WIDTH 13.7 % (11.6-14.6)
[2018-12-03 10:29] LABS: CLARITY URINE CLEAR (CLEAR); COLOR URINE YELLOW (YELLOW); KETONES URINE 1+ (NEGATIVE); LEUKOCYTE ESTERASE URINE NEGATIVE (NEGATIVE); NITRITE URINE NEGATIVE (NEGATIVE); OCCULT BLOOD URINE NEGATIVE (NEGATIVE); PH URINE 8.5 (4.5-8.0); PROTEIN URINE TRACE (NEGATIVE); SPECIFIC GRAVITY URINE 1.012 (1.005-1.030); UROBILINOGEN URINE 0.2 E.U./dL (0.2-1.0)
[2018-12-03] MEDS ORDERED: FOLIC ACID 1 MG, THIAMINE HCL 100 MG, MVI, ADULT NO.1 10 ML in DEXTROSE 5% WATER 1,000 ML IV SCH ×8 (11:00→12:30)
[2018-12-03] MEDS ORDERED: ONDANSETRON HCL 4MG/2ML INJ IV PRN (11:30)
[2018-12-03] MEDS ORDERED: ACETAMINOPHEN 325MG TABLET PO PRN (11:30)
[2018-12-03] MEDS: NICOTINE 21MG PATCH TD SCH ×2 (11:30→16:01)
[2018-12-03] MEDS: CLINDAMYCIN 900 MG in DEXTROSE 5% WATER 50 ML IV SCH ×2 (12:56→21:30)
[2018-12-03] MEDS ORDERED: SODIUM CHLORIDE 0.9% 1,000 ML IV NR (13:00)
[2018-12-03] MEDS: NOREPINEPHRINE 4 MG in DEXT 5% WATER 246 ML IV PRN ×2 (13:43→20:57)
[2018-12-03 15:25] LABS: *AMPHETAMINES SCREEN URINE NEGATIVE (NEGATIVE); *COCAINE SCREEN URINE PRESUMTIVE POSITIVE (NEGATIVE); CANNABINOID URINE SCREEN NEGATIVE (NEGATIVE); METHADONE URINE SCREEN NEGATIVE (NEGATIVE); OPIATES URINE SCREEN NEGATIVE (NEGATIVE); PHENCYCLIDINE URINE SCREEN PRESUMTIVE POSITIVE (NEGATIVE)
[2018-12-03 15:26] LABS: *BARBITURATES SCREEN URINE NEGATIVE (NEGATIVE); *BENZODIAZEPINES SCREEN URINE NEGATIVE (NEGATIVE)
[2018-12-03] MEDS: BACITRACIN 15GM TUBE TOP SCH ×2 (15:59→21:29)
[2018-12-03] MEDS ORDERED: DEXT 5%/0.45% NACL 1000ML 1,000 ML IV SCH (20:00)
[2018-12-03] MEDS ORDERED: PNEUMOCOCCAL 23-VAL P-SAC VAC 0.5 ML IM ONE (20:45)
[2018-12-03] MEDS ORDERED: INFLUENZA VIRUS VACCINE(AFLURIA) 0.5ML SYR IM ONE (20:45)
[2018-12-04] VITALS (62 sets, daily range): BP systolic 80–150; BP diastolic 23–85
[2018-12-04] MEDS: NOREPINEPHRINE 4 MG in DEXT 5% WATER 246 ML IV PRN (02:32)
[2018-12-04 05:32] LABS: BASOPHILS % 0.1 % (0.0-2.0); EOSINOPHILS % 0.1 % (0.0-5.0); HEMATOCRIT. 39.7 % (36.0-48.0); HEMOGLOBIN. 12.9 g/dL (12.0-16.0); MEAN CORPUSCULAR VOLUME 89.7 fL (81.0-99.0); MEAN PLATELET VOLUME 8.7 fl (7.4-10.4); MONOCYTES % 5.9 % (2.0-8.0); NEUTROPHILS % 76.9 % (40.0-76.0); PLATELET 187 x1000/uL (130-400); RED BLOOD CELL COUNT 4.43 mill/uL (4.2-5.4); RED CELL DISTRIBUTION WIDTH 14.1 % (11.6-14.6)
[2018-12-04 05:34] LABS: CHLORIDE 108 mEq/L (98-107)
[2018-12-04] MEDS: NICOTINE 21MG PATCH TD SCH ×2 (09:00→09:02)
[2018-12-04] MEDS: FOLIC ACID 1MG TABLET PO SCH (09:02)
[2018-12-04] MEDS: MULTIVITAMINS,THER W-MINERALS TABLET PO SCH (09:02)
[2018-12-04] MEDS: THIAMINE HCL 100MG TABLET PO SCH (09:02)
[2018-12-04] MEDS: BACITRACIN 15GM TUBE TOP SCH ×2 (09:05→22:51)
[2018-12-04] MEDS ORDERED: POTASSIUM CHLORIDE 20MEQ TABLET SR PO NR (09:45)
[2018-12-04] MEDS: MIDODRINE HCL 5MG TABLET PO SCH ×3 (10:50→18:20)
[2018-12-04] MEDS: CLINDAMYCIN 900 MG in DEXTROSE 5% WATER 50 ML IV SCH ×2 (10:50→17:00)
[2018-12-05] VITALS: BP 96/60
[2018-12-05] MEDS: CLINDAMYCIN 900 MG in DEXTROSE 5% WATER 50 ML IV SCH ×2 (00:44→09:34)
[2018-12-05 04:00] VITALS: BP 91/53
[2018-12-05 06:24] LABS: CHLORIDE 108 mEq/L (98-107)
[2018-12-05 06:29] LABS: BASOPHILS % 0.4 % (0.0-2.0); EOSINOPHILS % 0.7 % (0.0-5.0); HEMATOCRIT. 39.7 % (36.0-48.0); HEMOGLOBIN. 13.1 g/dL (12.0-16.0); LYMPHOCYTES % 19.7 % (20.0-50.0); MEAN CORPUSCULAR HEMOGLOBIN 29.6 pg (28.0-32.0); MEAN CORPUSCULAR VOLUME 89.9 fL (81.0-99.0); MEAN PLATELET VOLUME 8.9 fl (7.4-10.4); MONOCYTES % 5.6 % (2.0-8.0); NEUTROPHILS % 73.6 % (40.0-76.0); PLATELET 151 x1000/uL (130-400); RED BLOOD CELL COUNT 4.41 mill/uL (4.2-5.4); RED CELL DISTRIBUTION WIDTH 14.3 % (11.6-14.6)
[2018-12-05 07:40] VITALS: BP 91/66
[2018-12-05] MEDS: THIAMINE HCL 100MG TABLET PO SCH (09:34)
[2018-12-05] MEDS: FOLIC ACID 1MG TABLET PO SCH (09:34)
[2018-12-05] MEDS: NICOTINE 21MG PATCH TD SCH (09:35)
[2018-12-05] MEDS: MIDODRINE HCL 5MG TABLET PO SCH ×3 (09:44→17:10)
[2018-12-05] MEDS: MULTIVITAMINS,THER W-MINERALS TABLET PO SCH (09:44)
[2018-12-05] MEDS: BACITRACIN 15GM TUBE TOP SCH ×2 (09:49→20:57)
[2018-12-05 12:00] VITALS: BP 94/51
[2018-12-05 16:00] VITALS: BP 85/55
[2018-12-05 16:35] LABS: BG BASE EXCESS 0.8 mmol/L (-2.0-2.0); BG CARBOXYHEMOGLOBIN 1.2 % (0.5-1.5); BG DEOXYHEMOGLOBIN 12.8 % (0.0-5.0); BG FRACTION INSPIRED OXYGEN 21; BG HCO3 ACT 25.6 mmol/L (22.0-26.0); BG METHEMOGLOBIN 0.3 % (0.0-1.5); BG OXYHEMOGLOBIN 85.7 % (94.0-97.0); BG PCO2 41.8 mmHg (35.0-45.0); BG PH 7.405 (7.350-7.450); BG SAMPLE SITE RIGHT BRACHIAL; BG TOTAL HEMOGLOBIN 13.4 g/dL (12.0-18.0); BG VENT MODE ROOM AIR
[2018-12-05 20:00] VITALS: BP 91/52
[2018-12-06 00:10] VITALS: BP 101/54
[2018-12-06 04:00] VITALS: BP 90/50
[2018-12-06 06:22] LABS: BASOPHILS % 0.3 % (0.0-2.0); EOSINOPHILS % 1.3 % (0.0-5.0); HEMATOCRIT. 39.5 % (36.0-48.0); LYMPHOCYTES % 23.9 % (20.0-50.0); MEAN CORPUSCULAR HEMOGLOBIN 29.6 pg (28.0-32.0); MEAN CORPUSCULAR VOLUME 89.7 fL (81.0-99.0); MEAN PLATELET VOLUME 8.9 fl (7.4-10.4); MONOCYTES % 6.3 % (2.0-8.0); NEUTROPHILS % 68.2 % (40.0-76.0); PLATELET 151 x1000/uL (130-400); RED BLOOD CELL COUNT 4.41 mill/uL (4.2-5.4); RED CELL DISTRIBUTION WIDTH 13.9 % (11.6-14.6)
[2018-12-06 06:41] LABS: CHLORIDE 106 mEq/L (98-107)
[2018-12-06 08:00] VITALS: BP 80/42
[2018-12-06] MEDS ORDERED: IPRATROPIUM/ALBUTEROL 0.5-3(2.5)MG/3ML NEB HHN PRN (08:45)
[2018-12-06] MEDS: THIAMINE HCL 100MG TABLET PO SCH (09:11)
[2018-12-06] MEDS: MIDODRINE HCL 5MG TABLET PO SCH ×3 (09:12→17:01)
[2018-12-06] MEDS: NICOTINE 21MG PATCH TD SCH (09:13)
[2018-12-06] MEDS: MULTIVITAMINS,THER W-MINERALS TABLET PO SCH (09:13)
[2018-12-06] MEDS: FOLIC ACID 1MG TABLET PO SCH (09:15)
[2018-12-06] MEDS ORDERED: ACETYLCYSTEINE 200MG/ML 20% VIAL 4ML PO SCH (10:00)
[2018-12-06 12:00] VITALS: BP 86/54
[2018-12-06 15:40] VITALS: BP 99/60
[2018-12-06] MEDS: BACITRACIN 15GM TUBE TOP SCH ×2 (16:35→20:46)
[2018-12-06 20:00] VITALS: BP 90/49
[2018-12-06] MEDS: IPRATROPIUM/ALBUTEROL 0.5-3(2.5)MG/3ML NEB HHN SCH (20:00)
[2018-12-06] MEDS: GUAIFENESIN 600MG ER TABLET PO SCH (20:46)
[2018-12-07] VITALS: BP 93/56
[2018-12-07] MEDS: IPRATROPIUM/ALBUTEROL 0.5-3(2.5)MG/3ML NEB HHN SCH ×5 (02:13→21:36)
[2018-12-07] MEDS: ACETYLCYSTEINE 100MG/ML 10% VIAL 4ML INH SCH ×2 (02:48→15:21)
[2018-12-07 04:00] VITALS: BP 91/54
[2018-12-07 08:00] VITALS: BP 99/59
[2018-12-07] MEDS: BACITRACIN 15GM TUBE TOP SCH ×2 (08:38→22:09)
[2018-12-07] MEDS: MULTIVITAMINS,THER W-MINERALS TABLET PO SCH (08:38)
[2018-12-07] MEDS: FOLIC ACID 1MG TABLET PO SCH (08:38)
[2018-12-07] MEDS: NICOTINE 21MG PATCH TD SCH (08:38)
[2018-12-07] MEDS: THIAMINE HCL 100MG TABLET PO SCH (08:38)
[2018-12-07] MEDS: GUAIFENESIN 600MG ER TABLET PO SCH ×2 (08:39→22:09)
[2018-12-07] MEDS: MIDODRINE HCL 5MG TABLET PO SCH ×3 (08:39→17:17)
[2018-12-07] MEDS ORDERED: OSELTAMIVIR 75MG CAPSULE PO NR (11:00)
[2018-12-07 11:41] LABS: BG BASE EXCESS 4.5 mmol/L (-2.0-2.0); BG CARBOXYHEMOGLOBIN 1.4 % (0.5-1.5); BG DEOXYHEMOGLOBIN 8.3 % (0.0-5.0); BG FRACTION INSPIRED OXYGEN 21; BG HCO3 ACT 30.5 mmol/L (22.0-26.0); BG METHEMOGLOBIN 0.1 % (0.0-1.5); BG OXYGEN SATURATION 91.6 % (92.0-98.5); BG OXYHEMOGLOBIN 90.2 % (94.0-97.0); BG PCO2 50.2 mmHg (35.0-45.0); BG PH 7.401 (7.350-7.450); BG SAMPLE SITE RIGHT RADIAL; BG TOTAL HEMOGLOBIN 14.4 g/dL (12.0-18.0); BG VENT MODE ROOM AIR
[2018-12-07 12:00] VITALS: BP 147/99
[2018-12-07] MEDS ORDERED: CEFTRIAXONE 1 G PREMIX 50 ML IV SCH (12:00)
[2018-12-07] MEDS: METHYLPREDNISOLONE SOD SUCC 40 MG/ML VIAL IV SCH ×2 (12:32→22:09)
[2018-12-07] MEDS ORDERED: AZITHROMYCIN 500 MG in DEXT 5% WATER 250 ML IV SCH (13:00)
[2018-12-07 16:00] VITALS: BP 109/60
[2018-12-07 20:00] VITALS: BP 95/58
[2018-12-08] VITALS: BP 107/63
[2018-12-08] MEDS: IPRATROPIUM/ALBUTEROL 0.5-3(2.5)MG/3ML NEB HHN SCH ×2 (02:48→08:54)
[2018-12-08 04:00] VITALS: BP 96/53
[2018-12-08] MEDS: METHYLPREDNISOLONE SOD SUCC 40 MG/ML VIAL IV SCH (04:55)
[2018-12-08 08:00] VITALS: BP 99/52
[2018-12-08 08:39] VITALS: BP 99/52
[2018-12-08] MEDS: ACETYLCYSTEINE 100MG/ML 10% VIAL 4ML INH SCH (08:54)
[2018-12-08] MEDS: MIDODRINE HCL 5MG TABLET PO SCH (08:59)
[2018-12-08] MEDS: FOLIC ACID 1MG TABLET PO SCH (08:59)
[2018-12-08] MEDS: MULTIVITAMINS,THER W-MINERALS TABLET PO SCH (08:59)
[2018-12-08] MEDS: THIAMINE HCL 100MG TABLET PO SCH (08:59)
[2018-12-08] MEDS: GUAIFENESIN 600MG ER TABLET PO SCH (08:59)
[2018-12-08] MEDS: NICOTINE 21MG PATCH TD SCH (09:00)
[2018-12-08] MEDS: BACITRACIN 15GM TUBE TOP SCH (09:05)
== END 2018-12-08 10:00 | disposition home or self-care (01) | DRG 816 ==
LOC: ER 07:18 → CVICU 08:03 → EDBEDREQ 08:04 → ENRESERV 09:13 → 8WST 12-04 16:25
PROVIDERS: ADMIT Internal Medicine; ATTEND Internal Medicine
PROC: 05HY33Z Insertion of Infusion Device into Upper Vein, Percutaneous Approach (ICD-10-PCS; principal; 2018-12-04)
PROC: B54NZZA Ultrasonography of Left Upper Extremity Veins, Guidance (ICD-10-PCS; 2018-12-04)
DX: T40.5X1A Poisoning by cocaine, accidental (unintentional), initial encounter (principal); R57.9 Shock, unspecified; J96.01 Acute respiratory failure with hypoxia; G92 Toxic encephalopathy; J68.0 Bronchitis and pneumonitis due to chemicals, gases, fumes and vapors; F20.9 Schizophrenia, unspecified; R68.0 Hypothermia, not associated with low environmental temperature; F17.210 Nicotine dependence, cigarettes, uncomplicated; F14.10 Cocaine abuse, uncomplicated; F10.10 Alcohol abuse, uncomplicated; F16.90 Hallucinogen use, unspecified, uncomplicated; S01.112A Laceration without foreign body of left eyelid and periocular area, initial encounter; W01.0XXA Fall on same level from slipping, tripping and stumbling without subsequent striking against object, initial encounter; Y93.89 Activity, other specified; Y92.481 Parking lot as the place of occurrence of the external cause; Y99.8 Other external cause status; Y92.89 Other specified places as the place of occurrence of the external cause; Z87.440 Personal history of urinary (tract) infections; Z71.6 Tobacco abuse counseling
CPT/HCPCS: 36415; 36569; 36600; 71045; 76937; 80048; 80305; 82140; 82375; 82805; 83036; 83605; 84134; 84443; 84484; 90686; 90732; 92610; 93005; 93306; 93970; 96360; 97116; 97162; 99285; A6261; C1725; J0456; J0696; J2920; J3411; J3490; J7030; J7050; J7060; J7070; J7608; J7620

== ENCOUNTER 2018-12-24 22:25 | Emergency (ER) | payer SELFPAY | END 2018-12-25 00:30 | disposition left against medical advice (07) | LOC: ER 22:25 | DX: Z53.21 Procedure and treatment not carried out due to patient leaving prior to being seen by health care provider (principal) ==

== ENCOUNTER 2018-12-25 19:59 | Emergency (ER) | payer SELFPAY ==
[~2018-12-25] VITALS: Ht 175.3 cm; Wt 62.0 kg
[2018-12-25] MEDS ORDERED: SULFAMETHOXAZOLE/TRIMETHOPRIM 800/160MG TABLET PO ONE (23:00)
[2018-12-25] MEDS ORDERED: ACETAMINOPHEN 325MG TABLET PO ONE (23:00)
[2018-12-25] MEDS ORDERED: CEPHALEXIN 250MG CAPSULE PO ONE (23:00)
[2018-12-25] MEDS ORDERED: TETANUS, DIPHTHERIA, PERTUSSIS VAC/PF 0.5ML (>7YR OLD) IM ONE (23:00)
[2018-12-26 10:45] VITALS: BP 111/65
== END 2018-12-26 11:16 | disposition home or self-care (01) ==
LOC: ER 19:59
DX: L03.116 Cellulitis of left lower limb (principal); L03.115 Cellulitis of right lower limb; M79.642 Pain in left hand; J45.909 Unspecified asthma, uncomplicated; F20.9 Schizophrenia, unspecified; F17.200 Nicotine dependence, unspecified, uncomplicated; Z59.0 Homelessness
CPT/HCPCS: 90471; 90715; 93970; 99284

== ENCOUNTER 2019-01-04 17:17 | Emergency (ER) | payer SELFPAY ==
[~2019-01-04] VITALS: Ht 175.3 cm; Wt 61.0 kg
[2019-01-05] MEDS ORDERED: AZITHROMYCIN 500 MG TABLET PO ONE (03:45)
[2019-01-05] MEDS ORDERED: CEFTRIAXONE SODIUM 250 MG/VIAL IM ONE (03:45)
[2019-01-05] MEDS ORDERED: LIDOCAINE HCL 1% 20ML VIAL (Pyxis) INJ INFIL ONE (04:45)
[2019-01-05 04:52] LABS: BASOPHILS % 0.3 % (0.0-2.0); EOSINOPHILS % 0.8 % (0.0-5.0); HEMATOCRIT. 38.5 % (36.0-48.0); HEMOGLOBIN. 12.4 g/dL (12.0-16.0); LYMPHOCYTES % 14.1 % (20.0-50.0); MEAN CORPUSCULAR HEMOGLOBIN 29.1 pg (28.0-32.0); MEAN PLATELET VOLUME 8.5 fl (7.4-10.4); MONOCYTES % 5.4 % (2.0-8.0); NEUTROPHILS % 79.4 % (40.0-76.0); PLATELET 290 x1000/uL (130-400); RED BLOOD CELL COUNT 4.27 mill/uL (4.2-5.4); RED CELL DISTRIBUTION WIDTH 15.8 % (11.6-14.6)
[2019-01-05 04:58] LABS: CLARITY URINE CLOUDY (CLEAR); COLOR URINE YELLOW (YELLOW); KETONES URINE NEGATIVE (NEGATIVE); LEUKOCYTE ESTERASE URINE 1+ (NEGATIVE); NITRITE URINE POSITIVE (NEGATIVE); OCCULT BLOOD URINE NEGATIVE (NEGATIVE); PROTEIN URINE 1+ (NEGATIVE); SPECIFIC GRAVITY URINE 1.023 (1.005-1.030)
[2019-01-05] MEDS ORDERED: PENICILLIN G BENZATHINE 1,200,000 UNITS/2ML SYR IM ONE (06:15)
[2019-01-05 06:54] VITALS: BP 109/66
[2019-01-08 19:06] LABS: *HSV 1 DNA PCR Negative (Negative); *HSV 2 DNA PCR Negative (Negative)
== END 2019-01-05 06:58 | disposition home or self-care (01) ==
LOC: ER 17:17
DX: N39.0 Urinary tract infection, site not specified (principal); A53.9 Syphilis, unspecified; J45.909 Unspecified asthma, uncomplicated; F20.9 Schizophrenia, unspecified
CPT/HCPCS: 36415; 81003; 85025; 86592; 87210; 87491; 87529; 87591; 96372; 99283; J0561; J0696; J3490; Z7610

== ENCOUNTER 2019-01-06 07:31 | Emergency (ER) | payer SELFPAY | END 2019-01-06 09:10 | disposition left against medical advice (07) | LOC: ER 07:47 | DX: Z53.21 Procedure and treatment not carried out due to patient leaving prior to being seen by health care provider (principal) ==

== ENCOUNTER 2019-01-08 00:25 | Emergency (ER) | payer SELFPAY ==
[~2019-01-08] VITALS: Ht 175.3 cm; Wt 62.0 kg
[2019-01-08] MEDS ORDERED: KETOROLAC 60MG/2ML VIAL IM STA (07:43)
[2019-01-08 08:39] LABS: CLARITY URINE CLEAR (CLEAR); COLOR URINE YELLOW (YELLOW); KETONES URINE NEGATIVE (NEGATIVE); LEUKOCYTE ESTERASE URINE TRACE (NEGATIVE); NITRITE URINE NEGATIVE (NEGATIVE); OCCULT BLOOD URINE NEGATIVE (NEGATIVE); PH URINE 7.5 (4.5-8.0); PROTEIN URINE NEGATIVE (NEGATIVE); SPECIFIC GRAVITY URINE 1.008 (1.005-1.030); UROBILINOGEN URINE 0.2 E.U./dL (0.2-1.0)
[2019-01-08 08:40] LABS: BASOPHILS % 0.9 % (0.0-2.0); CHLORIDE 108 mEq/L (98-107); HEMATOCRIT. 41.3 % (36.0-48.0); HEMOGLOBIN. 13.6 g/dL (12.0-16.0); LYMPHOCYTES % 23.4 % (20.0-50.0); MEAN CORPUSCULAR HEMOGLOBIN 29.5 pg (28.0-32.0); MEAN CORPUSCULAR VOLUME 89.4 fL (81.0-99.0); MEAN PLATELET VOLUME 8.3 fl (7.4-10.4); MONOCYTES % 4.9 % (2.0-8.0); NEUTROPHILS % 67.8 % (40.0-76.0); PLATELET 350 x1000/uL (130-400); RED BLOOD CELL COUNT 4.62 mill/uL (4.2-5.4); RED CELL DISTRIBUTION WIDTH 15.8 % (11.6-14.6)
[2019-01-08 08:43] LABS: ETHANOL BLOOD < 10 mg/dL
[2019-01-08 10:00] LABS: *AMPHETAMINES SCREEN URINE NEGATIVE (NEGATIVE); *BARBITURATES SCREEN URINE NEGATIVE (NEGATIVE); CANNABINOID URINE SCREEN NEGATIVE (NEGATIVE)
[2019-01-08 10:01] LABS: *BENZODIAZEPINES SCREEN URINE NEGATIVE (NEGATIVE); *COCAINE SCREEN URINE PRESUMTIVE POSITIVE (NEGATIVE); METHADONE URINE SCREEN NEGATIVE (NEGATIVE); OPIATES URINE SCREEN NEGATIVE (NEGATIVE); PHENCYCLIDINE URINE SCREEN PRESUMTIVE POSITIVE (NEGATIVE)
[2019-01-08] MEDS ORDERED: ACETAMINOPHEN 500MG TABLET PO ONE (11:15)
[2019-01-08 11:23] VITALS: BP 128/89
== END 2019-01-08 13:10 | disposition home or self-care (01) ==
LOC: ER 00:25
DX: M54.5 Low back pain (principal); G89.29 Other chronic pain; A59.9 Trichomoniasis, unspecified; F16.10 Hallucinogen abuse, uncomplicated; F14.10 Cocaine abuse, uncomplicated; Z59.0 Homelessness
CPT/HCPCS: 36415; 71045; 80048; 80305; 80307; 80329; 81003; 85025; 87186; 96372; 99284; J1885

== ENCOUNTER 2019-01-09 01:20 | Emergency (ER) | payer SELFPAY | END 2019-01-09 05:40 | disposition left against medical advice (07) | LOC: ER 01:20 | DX: N93.9 Abnormal uterine and vaginal bleeding, unspecified (principal); Z53.21 Procedure and treatment not carried out due to patient leaving prior to being seen by health care provider ==

== ENCOUNTER 2019-01-10 22:11 | Emergency (ER) | payer SELFPAY ==
[~2019-01-10] VITALS: Ht 175.3 cm; Wt 61.0 kg
[2019-01-10 22:44] VITALS: BP 129/89
== END 2019-01-11 | disposition left against medical advice (07) ==
LOC: ER 22:11
DX: Z53.21 Procedure and treatment not carried out due to patient leaving prior to being seen by health care provider (principal)

== ENCOUNTER 2019-01-11 02:28 | Emergency (ER) | payer SELFPAY ==
[~2019-01-11] VITALS: Ht 170.2 cm; Wt 61.0 kg
[2019-01-11 07:48] LABS: CLARITY URINE CLOUDY (CLEAR); COLOR URINE YELLOW (YELLOW); KETONES URINE NEGATIVE (NEGATIVE); LEUKOCYTE ESTERASE URINE 2+ (NEGATIVE); NITRITE URINE POSITIVE (NEGATIVE); OCCULT BLOOD URINE NEGATIVE (NEGATIVE); PH URINE 7.5 (4.5-8.0); PROTEIN URINE 1+ (NEGATIVE); SPECIFIC GRAVITY URINE 1.019 (1.005-1.030)
[2019-01-11] MEDS ORDERED: LIDOCAINE HCL 1% 20ML VIAL (Pyxis) INJ INFIL ONE (08:15)
[2019-01-11] MEDS ORDERED: CEFTRIAXONE SODIUM 250 MG/VIAL IM ONE (08:15)
[2019-01-11 08:23] LABS: BASOPHILS % 0.8 % (0.0-2.0); EOSINOPHILS % 2.4 % (0.0-5.0); HEMATOCRIT. 43.7 % (36.0-48.0); HEMOGLOBIN. 13.8 g/dL (12.0-16.0); LYMPHOCYTES % 32.6 % (20.0-50.0); MEAN CORPUSCULAR HEMOGLOBIN 28.7 pg (28.0-32.0); MEAN CORPUSCULAR VOLUME 90.9 fL (81.0-99.0); MONOCYTES % 5.9 % (2.0-8.0); NEUTROPHILS % 58.3 % (40.0-76.0); RED BLOOD CELL COUNT 4.81 mill/uL (4.2-5.4); RED CELL DISTRIBUTION WIDTH 16.3 % (11.6-14.6)
[2019-01-11 08:26] LABS: CHLORIDE 108 mEq/L (98-107); PROTHROMBIN TIME 9.7 sec (9.1-11.1)
[2019-01-11 08:44] LABS: *BARBITURATES SCREEN URINE NEGATIVE (NEGATIVE); *BENZODIAZEPINES SCREEN URINE NEGATIVE (NEGATIVE); *COCAINE SCREEN URINE PRESUMTIVE POSITIVE (NEGATIVE); METHADONE URINE SCREEN NEGATIVE (NEGATIVE)
[2019-01-11 08:45] LABS: OPIATES URINE SCREEN NEGATIVE (NEGATIVE); PHENCYCLIDINE URINE SCREEN PRESUMTIVE POSITIVE (NEGATIVE)
[2019-01-11 08:46] LABS: *AMPHETAMINES SCREEN URINE NEGATIVE (NEGATIVE)
[2019-01-11 08:50] LABS: CANNABINOID URINE SCREEN NEGATIVE (NEGATIVE)
[2019-01-11 09:02] LABS: MEAN PLATELET VOLUME 8.5 fl (7.4-10.4); PLATELET 266 x1000/uL (130-400)
[2019-01-11 11:40] VITALS: BP 112/66
== END 2019-01-11 12:16 | disposition home or self-care (01) ==
LOC: ER 02:28
DX: N39.0 Urinary tract infection, site not specified (principal); K62.6 Ulcer of anus and rectum; F14.10 Cocaine abuse, uncomplicated; F16.10 Hallucinogen abuse, uncomplicated
CPT/HCPCS: 36415; 71045; 80053; 80305; 81003; 85025; 85610; 87077; 87086; 87186; 96372; 99284; J0696; J3490

== ENCOUNTER 2019-01-13 23:11 | Emergency (ER) | payer SELFPAY ==
[~2019-01-13] VITALS: Ht 165.1 cm; Wt 64.0 kg
[2019-01-14] MEDS ORDERED: SODIUM CHLORIDE 0.9% 1,000 ML IV ONE (06:44)
[2019-01-14 07:29] LABS: BASOPHILS % 0.4 % (0.0-2.0); EOSINOPHILS % 2.4 % (0.0-5.0); HEMATOCRIT. 38.9 % (36.0-48.0); HEMOGLOBIN. 12.7 g/dL (12.0-16.0); LYMPHOCYTES % 30.5 % (20.0-50.0); MEAN CORPUSCULAR HEMOGLOBIN 29.1 pg (28.0-32.0); MEAN CORPUSCULAR VOLUME 89.2 fL (81.0-99.0); MEAN PLATELET VOLUME 7.8 fl (7.4-10.4); MONOCYTES % 8.7 % (2.0-8.0); PLATELET 348 x1000/uL (130-400); RED BLOOD CELL COUNT 4.36 mill/uL (4.2-5.4); RED CELL DISTRIBUTION WIDTH 16.1 % (11.6-14.6)
[2019-01-14 07:35] LABS: CHLORIDE 109 mEq/L (98-107)
[2019-01-14 11:21] LABS: CLARITY URINE CLOUDY (CLEAR); COLOR URINE YELLOW (YELLOW); KETONES URINE NEGATIVE (NEGATIVE); LEUKOCYTE ESTERASE URINE 2+ (NEGATIVE); NITRITE URINE NEGATIVE (NEGATIVE); OCCULT BLOOD URINE NEGATIVE (NEGATIVE); PH URINE >=9.0 (4.5-8.0); PROTEIN URINE 1+ (NEGATIVE); SPECIFIC GRAVITY URINE 1.014 (1.005-1.030); UROBILINOGEN URINE 0.2 E.U./dL (0.2-1.0)
[2019-01-14] MEDS ORDERED: AZITHROMYCIN 500 MG TABLET PO ONE (12:15)
[2019-01-14] MEDS ORDERED: CEFTRIAXONE SODIUM 250 MG/VIAL IM ONE ×2 (12:15→12:45)
[2019-01-14 13:02] VITALS: BP 119/86
== END 2019-01-14 13:34 | disposition home or self-care (01) ==
LOC: ER 23:30
DX: N39.0 Urinary tract infection, site not specified (principal); Z20.2 Contact with and (suspected) exposure to infections with a predominantly sexual mode of transmission; N93.9 Abnormal uterine and vaginal bleeding, unspecified
CPT/HCPCS: 36415; 80053; 81003; 85025; 96360; 96372; 99283; J0696; J7030; Z7610

== ENCOUNTER 2019-01-16 22:58 | Inpatient (IN) | payer SELFPAY ==
[~2019-01-16] VITALS: Ht 175.3 cm; Wt 60.8 kg
[2019-01-17] MEDS ORDERED: SODIUM CHLORIDE 0.9% 1000ML BAG (SEPSIS BOLUS) IV ONE (02:30)
[2019-01-17] MEDS ORDERED: CEFTRIAXONE 1 G PREMIX 50 ML IV ONE (02:30)
[2019-01-17 03:25] LABS: CLARITY URINE CLOUDY (CLEAR); COLOR URINE YELLOW (YELLOW); KETONES URINE NEGATIVE (NEGATIVE); LEUKOCYTE ESTERASE URINE TRACE (NEGATIVE); NITRITE URINE NEGATIVE (NEGATIVE); OCCULT BLOOD URINE TRACE (NEGATIVE); PROTEIN URINE 2+ (NEGATIVE); SPECIFIC GRAVITY URINE 1.024 (1.005-1.030)
[2019-01-17 03:34] LABS: BASOPHILS % 0.8 % (0.0-2.0); EOSINOPHILS % 2.1 % (0.0-5.0); HEMATOCRIT. 38.3 % (36.0-48.0); HEMOGLOBIN. 12.4 g/dL (12.0-16.0); LYMPHOCYTES % 23.4 % (20.0-50.0); MEAN CORPUSCULAR HEMOGLOBIN 29.2 pg (28.0-32.0); MEAN CORPUSCULAR VOLUME 89.8 fL (81.0-99.0); MEAN PLATELET VOLUME 8.3 fl (7.4-10.4); MONOCYTES % 8.4 % (2.0-8.0); NEUTROPHILS % 65.3 % (40.0-76.0); PLATELET 336 x1000/uL (130-400); RED BLOOD CELL COUNT 4.26 mill/uL (4.2-5.4); RED CELL DISTRIBUTION WIDTH 16.2 % (11.6-14.6)
[2019-01-17 03:40] LABS: CHLORIDE 110 mEq/L (98-107)
[2019-01-17 03:48] LABS: ETHANOL BLOOD < 10 mg/dL
[2019-01-17] MEDS ORDERED: VANCOMYCIN 1 G PREMIX 200 ML IV SCH (05:15)
[2019-01-17] MEDS ORDERED: ACETAMINOPHEN 325MG TABLET PO PRN (15:00)
[2019-01-17] MEDS ORDERED: DIPHENHYDRAMINE 50MG/ML VIAL IV PRN (15:00)
[2019-01-17] MEDS ORDERED: MAGNESIUM/ALUMINUM HYDROXIDE/SIMETHICONE 30ML UDC PO PRN (15:00)
[2019-01-17 23:00] VITALS: BP 104/66
[2019-01-17] MEDS ORDERED: HYDROCODONE/ACETAMINOPHEN 5/325MG TABLET PO PRN (23:30)
[2019-01-18] VITALS: BP_SYST 119; BP_SYST 123; BP_DIAS 71; BP_DIAS 73
[2019-01-18] MEDS: SODIUM CHLORIDE 0.9% 1,000 ML IV SCH ×2 (03:00→07:55)
[2019-01-18 06:46] LABS: BASOPHILS % 0.5 % (0.0-2.0); EOSINOPHILS % 1.3 % (0.0-5.0); HEMATOCRIT. 36.7 % (36.0-48.0); HEMOGLOBIN. 12.1 g/dL (12.0-16.0); LYMPHOCYTES % 28.2 % (20.0-50.0); MEAN CORPUSCULAR HEMOGLOBIN 29.1 pg (28.0-32.0); MEAN CORPUSCULAR VOLUME 88.4 fL (81.0-99.0); MEAN PLATELET VOLUME 8.1 fl (7.4-10.4); MONOCYTES % 7.1 % (2.0-8.0); NEUTROPHILS % 62.9 % (40.0-76.0); PLATELET 323 x1000/uL (130-400); RED BLOOD CELL COUNT 4.15 mill/uL (4.2-5.4); RED CELL DISTRIBUTION WIDTH 15.5 % (11.6-14.6)
[2019-01-18 07:04] LABS: CHLORIDE 108 mEq/L (98-107)
[2019-01-18 08:00] VITALS: BP 119/78
[2019-01-18] MEDS ORDERED: GUAIFENESIN 200MG/10ML SUGAR FREE UDC PO PRN (09:15)
[2019-01-18 12:00] VITALS: BP 108/63
[2019-01-18] MEDS ORDERED: ACYCLOVIR INJ 500 MG in DEXT 5% WATER 100 ML IV SCH (14:00)
[2019-01-18 14:13] VITALS: BP 108/63
[2019-01-18 15:49] VITALS: BP 114/72
[2019-01-20 08:10] LABS: HIV SCREEN 4G Non Reactive (Non Reactive)
== END 2019-01-18 16:30 | disposition home or self-care (01) | DRG 383 ==
LOC: ER 22:58 → 6EST 01-17 04:22 → EDBEDREQTM 01-17 04:25 → EDBEDREQSVC 01-17 04:25 → EDBEDREQ 01-17 04:25 → EDBEDREQSVC 01-17 15:47 → ENRESERV 01-17 20:31
PROVIDERS: ADMIT Family Medicine Adult Medicine; ATTEND Family Medicine Adult Medicine
DX: B00.9 Herpesviral infection, unspecified (principal); F17.200 Nicotine dependence, unspecified, uncomplicated; N89.8 Other specified noninflammatory disorders of vagina; L30.8 Other specified dermatitis; R32 Unspecified urinary incontinence; Z59.0 Homelessness
CPT/HCPCS: 36415; 71045; 80048; 80320; 83605; 84145; 86592; 87389; 93970; 96365; 96367; 97161; 97165; 99291; J0133; J0696; J3370; J7030; J7060; A4315; G0480

== ENCOUNTER 2019-01-24 22:32 | Emergency (ER) | payer SELFPAY ==
[~2019-01-24] VITALS: Ht 177.8 cm; Wt 62.0 kg
[2019-01-25 07:54] VITALS: BP 105/63
[2019-01-25] MEDS ORDERED: SODIUM CHLORIDE 0.9% 1,000 ML IV ONE (08:13)
[2019-01-25] MEDS ORDERED: PANTOPRAZOLE SODIUM 40 MG/VIAL IV ONE (08:30)
[2019-01-25 08:57] LABS: BASOPHILS % 0.6 % (0.0-2.0); EOSINOPHILS % 1.6 % (0.0-5.0); HEMATOCRIT. 40.6 % (36.0-48.0); LYMPHOCYTES % 18.4 % (20.0-50.0); MEAN CORPUSCULAR HEMOGLOBIN 28.2 pg (28.0-32.0); MEAN CORPUSCULAR VOLUME 88.2 fL (81.0-99.0); MEAN PLATELET VOLUME 7.9 fl (7.4-10.4); MONOCYTES % 5.7 % (2.0-8.0); NEUTROPHILS % 73.7 % (40.0-76.0); PLATELET 424 x1000/uL (130-400); RED BLOOD CELL COUNT 4.61 mill/uL (4.2-5.4); RED CELL DISTRIBUTION WIDTH 16.1 % (11.6-14.6)
[2019-01-25 09:04] LABS: CHLORIDE 111 mEq/L (98-107)
[2019-01-25 09:08] LABS: ETHANOL BLOOD < 10 mg/dL
[2019-01-25 09:10] LABS: PARTIAL THROMBOPLASTIN TIME 29.9 sec (23.4-31.0); PROTHROMBIN TIME 10.3 sec (9.1-11.1)
[2019-01-25 10:52] LABS: CLARITY URINE CLEAR (CLEAR); COLOR URINE YELLOW (YELLOW); KETONES URINE NEGATIVE (NEGATIVE); LEUKOCYTE ESTERASE URINE TRACE (NEGATIVE); NITRITE URINE NEGATIVE (NEGATIVE); OCCULT BLOOD URINE NEGATIVE (NEGATIVE); PH URINE 6.5 (4.5-8.0); PROTEIN URINE TRACE (NEGATIVE); SPECIFIC GRAVITY URINE 1.022 (1.005-1.030); UROBILINOGEN URINE 0.2 E.U./dL (0.2-1.0)
[2019-01-25 11:09] LABS: *AMPHETAMINES SCREEN URINE NEGATIVE (NEGATIVE); *BARBITURATES SCREEN URINE NEGATIVE (NEGATIVE); *BENZODIAZEPINES SCREEN URINE NEGATIVE (NEGATIVE); *COCAINE SCREEN URINE PRESUMTIVE POSITIVE (NEGATIVE); CANNABINOID URINE SCREEN NEGATIVE (NEGATIVE)
[2019-01-25 11:10] LABS: METHADONE URINE SCREEN NEGATIVE (NEGATIVE); OPIATES URINE SCREEN NEGATIVE (NEGATIVE); PHENCYCLIDINE URINE SCREEN PRESUMTIVE POSITIVE (NEGATIVE)
== END 2019-01-25 12:43 | disposition home or self-care (01) ==
LOC: ER 22:32 → CANBEDREQ 01-25 17:47
DX: K62.5 Hemorrhage of anus and rectum (principal); N39.0 Urinary tract infection, site not specified; F14.129 Cocaine abuse with intoxication, unspecified; F16.129 Hallucinogen abuse with intoxication, unspecified; B35.6 Tinea cruris; N93.9 Abnormal uterine and vaginal bleeding, unspecified
CPT/HCPCS: 36415; 71045; 74176; 80053; 80305; 80320; 81003; 83690; 85025; 85610; 85730; 86850; 86900; 86901; 93005; 96361; 96374; 99284; C9113; J7030; Z7610; G0480

== ENCOUNTER 2019-01-25 21:23 | Emergency (ER) | payer SELFPAY ==
[~2019-01-25] VITALS: Ht 177.8 cm; Wt 62.0 kg
[2019-01-26] MEDS ORDERED: KETOROLAC 60MG/2ML VIAL IM STA (03:00)
[2019-01-26 05:00] VITALS: BP 112/62
== END 2019-01-26 05:35 | disposition home or self-care (01) ==
LOC: ER 21:23
DX: L03.317 Cellulitis of buttock (principal); M79.672 Pain in left foot; M79.671 Pain in right foot; N39.498 Other specified urinary incontinence; F17.200 Nicotine dependence, unspecified, uncomplicated; Z98.890 Other specified postprocedural states
CPT/HCPCS: 96372; 99283; J1885

== ENCOUNTER 2019-01-26 22:04 | Emergency (ER) | payer SELFPAY ==
[~2019-01-26] VITALS: Ht 177.8 cm; Wt 62.0 kg
[2019-01-27 09:28] VITALS: BP 115/70
== END 2019-01-27 10:52 | disposition home or self-care (01) ==
LOC: ER 22:04
DX: Z53.21 Procedure and treatment not carried out due to patient leaving prior to being seen by health care provider (principal); L30.8 Other specified dermatitis; R03.0 Elevated blood-pressure reading, without diagnosis of hypertension; R32 Unspecified urinary incontinence; F17.210 Nicotine dependence, cigarettes, uncomplicated

== ENCOUNTER 2019-01-27 21:57 | Emergency (ER) | payer SELFPAY ==
[~2019-01-27] VITALS: Ht 177.8 cm; Wt 69.3 kg
[2019-01-28 08:13] LABS: BASOPHILS % 0.5 % (0.0-2.0); EOSINOPHILS % 1.7 % (0.0-5.0); HEMATOCRIT. 38.7 % (36.0-48.0); HEMOGLOBIN. 12.6 g/dL (12.0-16.0); LYMPHOCYTES % 26.2 % (20.0-50.0); MEAN CORPUSCULAR HEMOGLOBIN 28.6 pg (28.0-32.0); MEAN CORPUSCULAR VOLUME 87.5 fL (81.0-99.0); MEAN PLATELET VOLUME 7.7 fl (7.4-10.4); MONOCYTES % 6.5 % (2.0-8.0); NEUTROPHILS % 65.1 % (40.0-76.0); PLATELET 355 x1000/uL (130-400); RED BLOOD CELL COUNT 4.42 mill/uL (4.2-5.4); RED CELL DISTRIBUTION WIDTH 15.7 % (11.6-14.6)
[2019-01-28 08:19] LABS: CHLORIDE 112 mEq/L (98-107)
[2019-01-28 12:15] VITALS: BP 103/64
== END 2019-01-28 12:44 | disposition home or self-care (01) ==
LOC: ER 21:57
DX: K64.8 Other hemorrhoids (principal); N39.498 Other specified urinary incontinence; R31.9 Hematuria, unspecified; G89.29 Other chronic pain; M54.9 Dorsalgia, unspecified; K92.1 Melena
CPT/HCPCS: 36415; 80048; 85025; 99283; Z7610

== ENCOUNTER 2019-01-29 22:09 | Emergency (ER) | payer SELFPAY ==
[~2019-01-29] VITALS: Ht 175.3 cm; Wt 67.0 kg
[2019-01-30 01:17] LABS: CLARITY URINE CLOUDY (CLEAR); COLOR URINE YELLOW (YELLOW); KETONES URINE NEGATIVE (NEGATIVE); LEUKOCYTE ESTERASE URINE 1+ (NEGATIVE); NITRITE URINE NEGATIVE (NEGATIVE); OCCULT BLOOD URINE NEGATIVE (NEGATIVE); PH URINE 6.5 (4.5-8.0); PROTEIN URINE TRACE (NEGATIVE); SPECIFIC GRAVITY URINE 1.019 (1.005-1.030)
[2019-01-30] MEDS ORDERED: CEPHALEXIN 250MG CAPSULE PO ONE (02:00)
[2019-01-30 03:15] VITALS: BP 101/59
[2019-01-30 17:45] LABS: *AMPHETAMINES SCREEN URINE NEGATIVE (NEGATIVE); *BARBITURATES SCREEN URINE NEGATIVE (NEGATIVE); *BENZODIAZEPINES SCREEN URINE NEGATIVE (NEGATIVE); *COCAINE SCREEN URINE PRESUMTIVE POSITIVE (NEGATIVE)
[2019-01-30 17:46] LABS: CANNABINOID URINE SCREEN NEGATIVE (NEGATIVE); METHADONE URINE SCREEN NEGATIVE (NEGATIVE); OPIATES URINE SCREEN NEGATIVE (NEGATIVE); PHENCYCLIDINE URINE SCREEN PRESUMTIVE POSITIVE (NEGATIVE)
== END 2019-01-30 03:31 | disposition home or self-care (01) ==
LOC: ER 22:09
DX: L03.119 Cellulitis of unspecified part of limb (principal); F17.200 Nicotine dependence, unspecified, uncomplicated; Z98.890 Other specified postprocedural states
CPT/HCPCS: 80305; 99283

== ENCOUNTER 2019-01-31 12:03 | Emergency (ER) | payer SELFPAY ==
[~2019-01-31] VITALS: Ht 175.3 cm; Wt 61.0 kg
[2019-01-31 14:56] LABS: BASOPHILS % 0.8 % (0.0-2.0); EOSINOPHILS % 2.3 % (0.0-5.0); HEMATOCRIT. 38.2 % (36.0-48.0); HEMOGLOBIN. 12.5 g/dL (12.0-16.0); LYMPHOCYTES % 20.7 % (20.0-50.0); MEAN CORPUSCULAR HEMOGLOBIN 28.4 pg (28.0-32.0); MONOCYTES % 6.9 % (2.0-8.0); NEUTROPHILS % 69.3 % (40.0-76.0); PLATELET 407 x1000/uL (130-400); RED BLOOD CELL COUNT 4.39 mill/uL (4.2-5.4)
[2019-01-31 15:01] LABS: CHLORIDE 108 mEq/L (98-107)
[2019-01-31 15:08] LABS: PROTHROMBIN TIME 10.2 sec (9.1-11.1)
[2019-01-31] MEDS ORDERED: ACETAMINOPHEN WITH CODEINE 300/30MG TABLET PO ONE (18:00)
[2019-01-31 18:13] VITALS: BP 100/67
== END 2019-01-31 19:39 | disposition home or self-care (01) ==
LOC: ER 12:03
DX: Z48.00 Encounter for change or removal of nonsurgical wound dressing (principal); M54.5 Low back pain; K62.5 Hemorrhage of anus and rectum; R31.0 Gross hematuria; R03.0 Elevated blood-pressure reading, without diagnosis of hypertension; F17.210 Nicotine dependence, cigarettes, uncomplicated; M79.605 Pain in left leg; M79.604 Pain in right leg
CPT/HCPCS: 36415; 86850; 86900; 99283

== ENCOUNTER 2019-02-04 01:37 | Emergency (ER) | payer SELFPAY ==
[~2019-02-04] VITALS: Ht 175.3 cm; Wt 62.0 kg
[2019-02-04 09:34] LABS: CHLORIDE 108 mEq/L (98-107)
[2019-02-04 09:35] LABS: PROTHROMBIN TIME 10.4 sec (9.1-11.1)
[2019-02-04 09:38] LABS: BASOPHILS % 0.9 % (0.0-2.0); EOSINOPHILS % 2.2 % (0.0-5.0); HEMATOCRIT. 40.3 % (36.0-48.0); HEMOGLOBIN. 12.9 g/dL (12.0-16.0); LYMPHOCYTES % 22.1 % (20.0-50.0); MEAN CORPUSCULAR HEMOGLOBIN 27.9 pg (28.0-32.0); MEAN CORPUSCULAR VOLUME 87.5 fL (81.0-99.0); MEAN PLATELET VOLUME 7.8 fl (7.4-10.4); MONOCYTES % 7.7 % (2.0-8.0); NEUTROPHILS % 67.1 % (40.0-76.0); PLATELET 398 x1000/uL (130-400); RED BLOOD CELL COUNT 4.61 mill/uL (4.2-5.4)
[2019-02-04 10:35] LABS: CLARITY URINE CLOUDY (CLEAR); COLOR URINE YELLOW (YELLOW); KETONES URINE NEGATIVE (NEGATIVE); LEUKOCYTE ESTERASE URINE 1+ (NEGATIVE); NITRITE URINE NEGATIVE (NEGATIVE); OCCULT BLOOD URINE NEGATIVE (NEGATIVE); PH URINE 6.5 (4.5-8.0); PROTEIN URINE TRACE (NEGATIVE); SPECIFIC GRAVITY URINE 1.025 (1.005-1.030)
[2019-02-04] MEDS ORDERED: CEFTRIAXONE SODIUM 1 G/VIAL IM ONE (11:15)
[2019-02-04] MEDS ORDERED: LIDOCAINE HCL 1% 20ML VIAL (Pyxis) INJ INFIL ONE (12:30)
[2019-02-04 13:00] VITALS: BP 103/59
[2019-02-07 04:12] LABS: CHLAMYDIA TRACHOMATIS NAA Negative (Negative); NEISSERIA GONORRHOEAE NAA Negative (Negative)
== END 2019-02-04 13:40 | disposition home or self-care (01) ==
LOC: ER 01:37
DX: N39.0 Urinary tract infection, site not specified (principal); M79.672 Pain in left foot; M79.671 Pain in right foot; K92.0 Hematemesis; F10.20 Alcohol dependence, uncomplicated; F17.200 Nicotine dependence, unspecified, uncomplicated; Z98.890 Other specified postprocedural states; Y90.9 Presence of alcohol in blood, level not specified
CPT/HCPCS: 36415; 80053; 81003; 83690; 85025; 85610; 87077; 87086; 87186; 87210; 87491; 87591; 96372; 99283; 99406; J0696; J3490

== ENCOUNTER 2019-02-09 00:39 | Emergency (ER) | payer SELFPAY ==
[~2019-02-09] VITALS: Ht 177.8 cm; Wt 62.0 kg
[2019-02-09 08:52] LABS: BASOPHILS % 0.4 % (0.0-2.0); EOSINOPHILS % 1.1 % (0.0-5.0); HEMATOCRIT. 39.7 % (36.0-48.0); HEMOGLOBIN. 12.9 g/dL (12.0-16.0); LYMPHOCYTES % 19.9 % (20.0-50.0); MEAN CORPUSCULAR HEMOGLOBIN 28.2 pg (28.0-32.0); MEAN PLATELET VOLUME 7.8 fl (7.4-10.4); MONOCYTES % 4.9 % (2.0-8.0); NEUTROPHILS % 73.7 % (40.0-76.0); PLATELET 354 x1000/uL (130-400); RED BLOOD CELL COUNT 4.57 mill/uL (4.2-5.4); RED CELL DISTRIBUTION WIDTH 16.5 % (11.6-14.6)
[2019-02-09 09:01] LABS: PARTIAL THROMBOPLASTIN TIME 30.5 sec (23.4-31.0); PROTHROMBIN TIME 10.5 sec (9.1-11.1)
[2019-02-09 09:30] LABS: CLARITY URINE CLEAR (CLEAR); COLOR URINE DARK YELLOW (YELLOW); KETONES URINE NEGATIVE (NEGATIVE); LEUKOCYTE ESTERASE URINE NEGATIVE (NEGATIVE); NITRITE URINE NEGATIVE (NEGATIVE); OCCULT BLOOD URINE NEGATIVE (NEGATIVE); PH URINE 5.5 (4.5-8.0); PROTEIN URINE TRACE (NEGATIVE); SPECIFIC GRAVITY URINE 1.025 (1.005-1.030)
[2019-02-09 09:53] LABS: *AMPHETAMINES SCREEN URINE NEGATIVE (NEGATIVE); *BARBITURATES SCREEN URINE NEGATIVE (NEGATIVE); *BENZODIAZEPINES SCREEN URINE NEGATIVE (NEGATIVE); *COCAINE SCREEN URINE PRESUMTIVE POSITIVE (NEGATIVE)
[2019-02-09 09:54] LABS: CANNABINOID URINE SCREEN NEGATIVE (NEGATIVE); METHADONE URINE SCREEN NEGATIVE (NEGATIVE); OPIATES URINE SCREEN NEGATIVE (NEGATIVE); PHENCYCLIDINE URINE SCREEN PRESUMTIVE POSITIVE (NEGATIVE)
[2019-02-09 10:09] VITALS: BP 102/68
== END 2019-02-09 10:45 | disposition home or self-care (01) ==
LOC: ER 00:39
DX: F14.129 Cocaine abuse with intoxication, unspecified (principal); F16.129 Hallucinogen abuse with intoxication, unspecified; R31.9 Hematuria, unspecified; K62.5 Hemorrhage of anus and rectum; F19.10 Other psychoactive substance abuse, uncomplicated; R11.2 Nausea with vomiting, unspecified; F17.200 Nicotine dependence, unspecified, uncomplicated
CPT/HCPCS: 36415; 80305; 81003; 85025; 85610; 85730; 99283; Z7610

== ENCOUNTER 2019-02-11 23:12 | Emergency (ER) | payer MEDICAID ==
[~2019-02-11] VITALS: Ht 175.3 cm; Wt 61.0 kg
[2019-02-12] MEDS ORDERED: ACETAMINOPHEN 325MG TABLET PO STA (06:39)
[2019-02-12] MEDS ORDERED: PANTOPRAZOLE SODIUM 40 MG/VIAL IV STA (06:39)
[2019-02-12] MEDS ORDERED: SODIUM CHLORIDE 0.9% 1,000 ML IV ONE (06:39)
[2019-02-12 07:01] LABS: BASOPHILS % 0.9 % (0.0-2.0); EOSINOPHILS % 1.4 % (0.0-5.0); HEMATOCRIT. 39.4 % (36.0-48.0); HEMOGLOBIN. 12.8 g/dL (12.0-16.0); LYMPHOCYTES % 18.5 % (20.0-50.0); MEAN CORPUSCULAR HEMOGLOBIN 28.3 pg (28.0-32.0); MEAN CORPUSCULAR VOLUME 86.9 fL (81.0-99.0); MEAN PLATELET VOLUME 8.2 fl (7.4-10.4); MONOCYTES % 4.9 % (2.0-8.0); NEUTROPHILS % 74.3 % (40.0-76.0); PLATELET 373 x1000/uL (130-400); RED BLOOD CELL COUNT 4.53 mill/uL (4.2-5.4); RED CELL DISTRIBUTION WIDTH 16.1 % (11.6-14.6)
[2019-02-12 07:03] LABS: CHLORIDE 110 mEq/L (98-107)
[2019-02-12 07:19] LABS: INR 1.1; PROTHROMBIN TIME 10.7 sec (9.1-11.1)
[2019-02-12] MEDS ORDERED: POTASSIUM CHLORIDE 20MEQ TABLET SR PO ONE (09:00)
[2019-02-12 10:00] VITALS: BP 105/61
== END 2019-02-12 10:20 | disposition home or self-care (01) ==
LOC: ER 23:12
DX: L03.317 Cellulitis of buttock (principal); L03.119 Cellulitis of unspecified part of limb; R11.10 Vomiting, unspecified; F17.200 Nicotine dependence, unspecified, uncomplicated; Z98.890 Other specified postprocedural states
CPT/HCPCS: 36415; 80053; 83690; 85025; 85610; 96361; 96374; 99283; C9113; J7030

== ENCOUNTER 2019-02-12 22:52 | Emergency (ER) | payer MEDICAID | END 2019-02-13 03:32 | disposition left against medical advice (07) | LOC: ER 22:52 | DX: J02.9 Acute pharyngitis, unspecified (principal); Z53.21 Procedure and treatment not carried out due to patient leaving prior to being seen by health care provider ==

== ENCOUNTER 2019-02-13 22:11 | Emergency (ER) | payer MEDICAID ==
[~2019-02-13] VITALS: Ht 177.8 cm; Wt 61.0 kg
[2019-02-14 02:41] VITALS: BP 95/62
== END 2019-02-14 08:43 | disposition home or self-care (01) ==
LOC: ER 22:11
DX: L03.315 Cellulitis of perineum (principal); R15.9 Full incontinence of feces; F17.200 Nicotine dependence, unspecified, uncomplicated
CPT/HCPCS: 99283

== ENCOUNTER 2019-02-15 21:35 | Emergency (ER) | payer MEDICAID ==
[~2019-02-15] VITALS: Ht 175.3 cm; Wt 62.0 kg
[2019-02-16] MEDS ORDERED: ACETAMINOPHEN 325MG TABLET PO SCH (04:17)
[2019-02-16] MEDS ORDERED: SULFAMETHOXAZOLE/TRIMETHOPRIM 800/160MG TABLET PO SCH (04:30)
[2019-02-16] MEDS ORDERED: CEPHALEXIN 250MG CAPSULE PO SCH (04:30)
[2019-02-16 04:48] VITALS: BP 100/64
== END 2019-02-16 04:50 | disposition home or self-care (01) ==
LOC: ER 21:35
DX: L03.317 Cellulitis of buttock (principal); R30.0 Dysuria; R21 Rash and other nonspecific skin eruption; F17.200 Nicotine dependence, unspecified, uncomplicated; Z98.890 Other specified postprocedural states
CPT/HCPCS: 99284

== ENCOUNTER 2019-02-22 08:49 | Emergency (ER) | payer MEDICAID ==
[~2019-02-22] VITALS: Ht 175.3 cm; Wt 68.0 kg
[2019-02-22 11:52] VITALS: BP 103/84
== END 2019-02-22 11:53 | disposition home or self-care (01) ==
LOC: ER 08:49
DX: G89.29 Other chronic pain (principal); R10.9 Unspecified abdominal pain; R31.9 Hematuria, unspecified; F16.10 Hallucinogen abuse, uncomplicated; F14.10 Cocaine abuse, uncomplicated; F17.210 Nicotine dependence, cigarettes, uncomplicated; Z71.6 Tobacco abuse counseling; Z96.659 Presence of unspecified artificial knee joint
CPT/HCPCS: 99283; 99406

== ENCOUNTER 2019-02-23 02:18 | Emergency (ER) | payer MEDICAID ==
[~2019-02-23] VITALS: Ht 177.8 cm; Wt 61.0 kg
[2019-02-23] MEDS ORDERED: IBUPROFEN 600MG TABLET PO ONE (04:30)
[2019-02-23 05:57] LABS: CLARITY URINE CLOUDY (CLEAR); COLOR URINE YELLOW (YELLOW); KETONES URINE NEGATIVE (NEGATIVE); LEUKOCYTE ESTERASE URINE TRACE (NEGATIVE); NITRITE URINE NEGATIVE (NEGATIVE); OCCULT BLOOD URINE NEGATIVE (NEGATIVE); PH URINE 6.5 (4.5-8.0); PROTEIN URINE TRACE (NEGATIVE); SPECIFIC GRAVITY URINE 1.024 (1.005-1.030)
[2019-02-23 06:27] VITALS: BP 120/73
== END 2019-02-23 07:13 | disposition home or self-care (01) ==
LOC: ER 02:18
DX: L98.419 Non-pressure chronic ulcer of buttock with unspecified severity (principal); N30.01 Acute cystitis with hematuria; F17.200 Nicotine dependence, unspecified, uncomplicated; Z96.652 Presence of left artificial knee joint
CPT/HCPCS: 81003; 99283; Z7610

== ENCOUNTER 2019-02-24 07:12 | Emergency (ER) | payer MEDICAID ==
[~2019-02-24] VITALS: Ht 175.3 cm; Wt 61.0 kg
[2019-02-24 07:35] VITALS: BP 93/61
== END 2019-02-24 08:31 | disposition home or self-care (01) ==
LOC: ER 07:12
DX: N30.90 Cystitis, unspecified without hematuria (principal); M54.5 Low back pain; Z96.659 Presence of unspecified artificial knee joint
CPT/HCPCS: 99282

== ENCOUNTER 2019-02-26 07:22 | Emergency (ER) | payer MEDICAID ==
[~2019-02-26] VITALS: Ht 167.6 cm; Wt 75.0 kg
[2019-02-26] MEDS ORDERED: CEPHALEXIN 250MG CAPSULE PO ONE (08:30)
[2019-02-26 08:52] VITALS: BP 105/65
== END 2019-02-26 08:59 | disposition home or self-care (01) ==
LOC: ER 07:22
DX: L03.116 Cellulitis of left lower limb (principal); L03.115 Cellulitis of right lower limb
CPT/HCPCS: 99283

== ENCOUNTER 2019-02-27 07:40 | Emergency (ER) | payer MEDICAID ==
[~2019-02-27] VITALS: Ht 175.3 cm; Wt 61.0 kg
[2019-02-27 08:00] VITALS: BP 99/61
== END 2019-02-27 08:48 | disposition left against medical advice (07) ==
LOC: ER 07:40
DX: K92.1 Melena (principal); Z53.21 Procedure and treatment not carried out due to patient leaving prior to being seen by health care provider

== ENCOUNTER 2019-02-28 22:27 | Emergency (ER) | payer MEDICAID ==
[~2019-02-28] VITALS: Ht 175.3 cm; Wt 61.0 kg
[2019-03-01 04:57] LABS: CLARITY URINE TURBID (CLEAR); COLOR URINE YELLOW (YELLOW); KETONES URINE NEGATIVE (NEGATIVE); LEUKOCYTE ESTERASE URINE 1+ (NEGATIVE); NITRITE URINE NEGATIVE (NEGATIVE); OCCULT BLOOD URINE NEGATIVE (NEGATIVE); PH URINE 7.5 (4.5-8.0); PROTEIN URINE 1+ (NEGATIVE); SPECIFIC GRAVITY URINE 1.026 (1.005-1.030)
[2019-03-01] MEDS ORDERED: FLUCONAZOLE 50MG TABLET PO ONE (05:45)
[2019-03-01 07:29] VITALS: BP 106/68
== END 2019-03-01 07:31 | disposition home or self-care (01) ==
LOC: ER 22:27
DX: N30.90 Cystitis, unspecified without hematuria (principal); N76.0 Acute vaginitis; F17.210 Nicotine dependence, cigarettes, uncomplicated; Z96.659 Presence of unspecified artificial knee joint
CPT/HCPCS: 99283

== ENCOUNTER 2019-03-06 02:37 | Emergency (ER) | payer MEDICAID ==
[~2019-03-06] VITALS: Ht 175.3 cm; Wt 61.0 kg
[2019-03-06 06:25] VITALS: BP 90/53
== END 2019-03-06 06:39 | disposition home or self-care (01) ==
LOC: ER 02:37
DX: L98.9 Disorder of the skin and subcutaneous tissue, unspecified (principal); F17.200 Nicotine dependence, unspecified, uncomplicated; Z96.659 Presence of unspecified artificial knee joint
CPT/HCPCS: 99283

== ENCOUNTER 2019-03-07 09:18 | Emergency (ER) | payer MEDICAID | END 2019-03-07 09:51 | disposition left against medical advice (07) | LOC: ER 09:18 | DX: Z53.21 Procedure and treatment not carried out due to patient leaving prior to being seen by health care provider (principal) ==

== ENCOUNTER 2019-03-11 00:39 | Emergency (ER) | payer MEDICAID ==
[~2019-03-11] VITALS: Ht 177.8 cm; Wt 61.9 kg
[2019-03-11] MEDS ORDERED: ZINC OXIDE 20% OINT 30GM TOP ONE (08:15)
[2019-03-11] MEDS ORDERED: BACITRACIN ZINC OINT UDPKT TOP ONE (08:15)
[2019-03-11 09:06] LABS: CLARITY URINE TURBID (CLEAR); COLOR URINE YELLOW (YELLOW); KETONES URINE TRACE (NEGATIVE); LEUKOCYTE ESTERASE URINE 2+ (NEGATIVE); NITRITE URINE POSITIVE (NEGATIVE); OCCULT BLOOD URINE NEGATIVE (NEGATIVE); PROTEIN URINE 1+ (NEGATIVE); SPECIFIC GRAVITY URINE 1.021 (1.005-1.030)
[2019-03-11 09:36] VITALS: BP 107/80
== END 2019-03-11 09:50 | disposition home or self-care (01) ==
LOC: ER 00:39
DX: N39.0 Urinary tract infection, site not specified (principal); Z98.890 Other specified postprocedural states
CPT/HCPCS: 81003; 87077; 87086; 87186; 99283; Z7610

== ENCOUNTER 2019-03-12 03:57 | Emergency (ER) | payer MEDICAID ==
[~2019-03-12] VITALS: Ht 175.3 cm; Wt 71.0 kg
[2019-03-12 08:30] VITALS: BP 101/66
[2019-03-12] MEDS ORDERED: ACETAMINOPHEN 500MG TABLET PO ONE (08:30)
== END 2019-03-12 08:50 | disposition home or self-care (01) ==
LOC: ER 03:57
DX: L98.411 Non-pressure chronic ulcer of buttock limited to breakdown of skin (principal); R32 Unspecified urinary incontinence; F17.200 Nicotine dependence, unspecified, uncomplicated
CPT/HCPCS: 99283

== ENCOUNTER 2019-03-13 07:25 | Emergency (ER) | payer MEDICAID ==
[~2019-03-13] VITALS: Ht 175.3 cm; Wt 91.0 kg
[2019-03-13 10:43] VITALS: BP 108/70
== END 2019-03-13 10:50 | disposition home or self-care (01) ==
LOC: ER 07:25
DX: L98.491 Non-pressure chronic ulcer of skin of other sites limited to breakdown of skin (principal); Z98.890 Other specified postprocedural states
CPT/HCPCS: 99281

== ENCOUNTER 2019-03-13 23:06 | Emergency (ER) | payer MEDICAID ==
[~2019-03-13] VITALS: Ht 177.8 cm; Wt 62.0 kg
[2019-03-14] MEDS ORDERED: ACETAMINOPHEN 325MG TABLET PO NR (04:23)
[2019-03-14 04:37] VITALS: BP 127/68
== END 2019-03-14 04:37 | disposition home or self-care (01) ==
LOC: ER 23:06
DX: L03.314 Cellulitis of groin (principal); B37.3 Candidiasis of vulva and vagina; L30.4 Erythema intertrigo; F17.210 Nicotine dependence, cigarettes, uncomplicated
CPT/HCPCS: 99283

== ENCOUNTER 2019-03-15 02:27 | Emergency (ER) | payer MEDICAID ==
[~2019-03-15] VITALS: Ht 175.3 cm; Wt 61.0 kg
[2019-03-15] MEDS ORDERED: IBUPROFEN 400MG TABLET PO ONE (05:45)
[2019-03-15 07:32] VITALS: BP 109/63
== END 2019-03-15 08:12 | disposition home or self-care (01) ==
LOC: ER 02:27
DX: S30.810A Abrasion of lower back and pelvis, initial encounter (principal); S30.814A Abrasion of vagina and vulva, initial encounter; R32 Unspecified urinary incontinence; F17.210 Nicotine dependence, cigarettes, uncomplicated; Z59.0 Homelessness; Z91.14 Patient's other noncompliance with medication regimen; Z98.890 Other specified postprocedural states; X58.XXXA Exposure to other specified factors, initial encounter; Y93.89 Activity, other specified; Y92.89 Other specified places as the place of occurrence of the external cause
CPT/HCPCS: 99283

== ENCOUNTER 2019-03-16 07:24 | Emergency (ER) | payer MEDICAID | END 2019-03-16 08:57 | disposition left against medical advice (07) | LOC: ER 07:24 | DX: M54.5 Low back pain (principal); Z53.21 Procedure and treatment not carried out due to patient leaving prior to being seen by health care provider ==

== ENCOUNTER 2019-03-18 01:50 | Emergency (ER) | payer MEDICAID | END 2019-03-18 05:20 | disposition left against medical advice (07) | LOC: ER 01:50 | DX: M54.9 Dorsalgia, unspecified (principal); Z53.21 Procedure and treatment not carried out due to patient leaving prior to being seen by health care provider ==

== ENCOUNTER 2019-03-19 07:19 | Emergency (ER) | payer MEDICAID ==
[~2019-03-19] VITALS: Ht 177.8 cm; Wt 59.0 kg
[2019-03-19 08:00] VITALS: BP 121/83
== END 2019-03-19 08:20 | disposition home or self-care (01) ==
LOC: ER 07:19
DX: T14.8XXA Other injury of unspecified body region, initial encounter (principal); L73.8 Other specified follicular disorders; R32 Unspecified urinary incontinence; F17.210 Nicotine dependence, cigarettes, uncomplicated; Z88.0 Allergy status to penicillin; W01.0XXA Fall on same level from slipping, tripping and stumbling without subsequent striking against object, initial encounter; Y93.89 Activity, other specified; Y92.018 Other place in single-family (private) house as the place of occurrence of the external cause
CPT/HCPCS: 99282

== ENCOUNTER 2019-03-20 07:32 | Emergency (ER) | payer MEDICAID ==
[~2019-03-20] VITALS: Ht 177.8 cm; Wt 61.0 kg
[2019-03-20 07:49] VITALS: BP 117/64
== END 2019-03-20 12:08 | disposition left against medical advice (07) ==
LOC: ER 07:32
DX: R31.9 Hematuria, unspecified (principal); M79.18 Myalgia, other site; Z88.0 Allergy status to penicillin
CPT/HCPCS: 99281

== ENCOUNTER 2019-03-21 00:39 | Emergency (ER) | payer SELFPAY ==
[~2019-03-21] VITALS: Ht 177.8 cm; Wt 61.0 kg
[2019-03-21] MEDS ORDERED: ALBUTEROL (0.083%) 2.5MG/3ML NEB HHN ONE (01:15)
[2019-03-21 01:53] LABS: CLARITY URINE TURBID (CLEAR); COLOR URINE YELLOW (YELLOW); KETONES URINE NEGATIVE (NEGATIVE); LEUKOCYTE ESTERASE URINE 3+ (NEGATIVE); NITRITE URINE NEGATIVE (NEGATIVE); OCCULT BLOOD URINE 1+ (NEGATIVE); PROTEIN URINE 2+ (NEGATIVE); SPECIFIC GRAVITY URINE 1.018 (1.005-1.030)
[2019-03-21] MEDS ORDERED: CLINDAMYCIN 300 MG in DEXTROSE 5% WATER 50 ML IV ONE (02:30)
[2019-03-21 03:03] LABS: BASOPHILS % 1.2 % (0.0-2.0); EOSINOPHILS % 1.6 % (0.0-5.0); HEMATOCRIT. 31.8 % (36.0-48.0); HEMOGLOBIN. 10.1 g/dL (12.0-16.0); LYMPHOCYTES % 24.7 % (20.0-50.0); MEAN CORPUSCULAR HEMOGLOBIN 29.1 pg (28.0-32.0); MEAN CORPUSCULAR VOLUME 91.8 fL (81.0-99.0); MEAN PLATELET VOLUME 7.8 fl (7.4-10.4); MONOCYTES % 5.2 % (2.0-8.0); NEUTROPHILS % 67.3 % (40.0-76.0); PLATELET 412 x1000/uL (130-400); RED BLOOD CELL COUNT 3.47 mill/uL (4.2-5.4); RED CELL DISTRIBUTION WIDTH 19.5 % (11.6-14.6)
[2019-03-21 03:11] LABS: CHLORIDE 108 mEq/L (98-107)
[2019-03-21] MEDS ORDERED: POTASSIUM CHLORIDE 20MEQ TABLET SR PO ONE (04:00)
[2019-03-21 04:55] VITALS: BP 99/63
== END 2019-03-21 05:09 | disposition home or self-care (01) ==
LOC: ER 00:39
DX: N39.0 Urinary tract infection, site not specified (principal); D64.9 Anemia, unspecified; E87.6 Hypokalemia; Z88.0 Allergy status to penicillin
CPT/HCPCS: 36415; 71045; 80048; 81003; 85025; 87040; 87077; 87086; 87186; 94640; 96365; 99284; J3490; J7060; J7611; Z7610

== ENCOUNTER 2019-04-02 22:10 | Emergency (ER) | payer SELFPAY ==
[~2019-04-02] VITALS: Ht 177.8 cm; Wt 61.0 kg
[2019-04-03] MEDS ORDERED: IBUPROFEN 800MG TABLET PO ONE (08:45)
[2019-04-03 21:56] VITALS: BP 105/67
== END 2019-04-03 22:32 | disposition home or self-care (01) ==
LOC: ER 22:10
DX: G89.29 Other chronic pain (principal); M25.552 Pain in left hip; R10.2 Pelvic and perineal pain; M54.5 Low back pain; M79.605 Pain in left leg; F17.200 Nicotine dependence, unspecified, uncomplicated; Z76.5 Malingerer [conscious simulation]; Z87.440 Personal history of urinary (tract) infections; Z88.0 Allergy status to penicillin
CPT/HCPCS: 72170; 73552; 99283

== ENCOUNTER 2019-04-04 08:16 | Emergency (ER) | payer SELFPAY ==
[~2019-04-04] VITALS: Ht 170.2 cm; Wt 59.0 kg
[2019-04-04 09:17] VITALS: BP 103/65
== END 2019-04-04 10:00 | disposition left against medical advice (07) ==
LOC: ER 08:16
DX: Z53.21 Procedure and treatment not carried out due to patient leaving prior to being seen by health care provider (principal)

== ENCOUNTER 2019-04-05 08:07 | Emergency (ER) | payer SELFPAY ==
[~2019-04-05] VITALS: Ht 172.7 cm; Wt 56.0 kg
[2019-04-05] MEDS ORDERED: KETOROLAC 60MG/2ML VIAL IM ONE (09:30)
[2019-04-06] MEDS ORDERED: HYDROCODONE/ACETAMINOPHEN 5/325MG TABLET PO STA (08:27)
[2019-04-06] MEDS ORDERED: KETOROLAC 60MG/2ML VIAL IM STA (08:27)
[2019-04-06 11:14] VITALS: BP 108/68
== END 2019-04-06 11:14 | disposition home or self-care (01) ==
LOC: ER 08:07
DX: G89.29 Other chronic pain (principal); M79.605 Pain in left leg; Z59.0 Homelessness; Z87.440 Personal history of urinary (tract) infections
CPT/HCPCS: 96372; 99283; J1885; Z7610

== ENCOUNTER 2019-04-10 02:10 | Emergency (ER) | payer SELFPAY ==
[~2019-04-10] VITALS: Ht 175.3 cm; Wt 61.0 kg
[2019-04-10] MEDS ORDERED: ACETAMINOPHEN 325MG TABLET PO ONE (06:30)
[2019-04-10 06:55] VITALS: BP 98/56
== END 2019-04-10 08:50 | disposition home or self-care (01) ==
LOC: MERGE 02:10 → ER 02:10
DX: G89.29 Other chronic pain (principal); F19.10 Other psychoactive substance abuse, uncomplicated; F17.200 Nicotine dependence, unspecified, uncomplicated; Z88.0 Allergy status to penicillin; Z96.659 Presence of unspecified artificial knee joint; Z98.890 Other specified postprocedural states
CPT/HCPCS: 99283

== ENCOUNTER 2019-04-10 20:44 | Emergency (ER) | payer SELFPAY ==
[~2019-04-10] VITALS: Ht 170.2 cm; Wt 54.0 kg
[2019-04-11] MEDS ORDERED: ACETAMINOPHEN 325MG TABLET PO ONE (07:00)
[2019-04-11 09:47] VITALS: BP 99/67
== END 2019-04-11 11:40 | disposition home or self-care (01) ==
LOC: MERGE 20:44 → ER 20:44
DX: M25.562 Pain in left knee (principal); Z88.0 Allergy status to penicillin; Z98.890 Other specified postprocedural states; W01.0XXA Fall on same level from slipping, tripping and stumbling without subsequent striking against object, initial encounter; Y93.89 Activity, other specified; Y92.018 Other place in single-family (private) house as the place of occurrence of the external cause
CPT/HCPCS: 73030; 73552; 99283; Z7610

== ENCOUNTER 2019-04-11 15:21 | Emergency (ER) | payer SELFPAY ==
[~2019-04-11] VITALS: Ht 167.6 cm; Wt 75.0 kg
[2019-04-11 15:32] VITALS: BP 107/65
== END 2019-04-11 23:34 | disposition home or self-care (01) ==
LOC: ER 15:21
DX: M79.18 Myalgia, other site (principal); Z88.0 Allergy status to penicillin; Z96.649 Presence of unspecified artificial hip joint
CPT/HCPCS: 99283

== ENCOUNTER 2019-04-12 09:07 | Emergency (ER) | payer SELFPAY ==
[~2019-04-12] VITALS: Ht 175.3 cm; Wt 61.0 kg
[2019-04-12 09:28] VITALS: BP 104/63
== END 2019-04-12 11:31 | disposition left against medical advice (07) ==
LOC: ER 09:07
DX: Z53.21 Procedure and treatment not carried out due to patient leaving prior to being seen by health care provider (principal)

== ENCOUNTER 2019-04-12 12:05 | Emergency (ER) | payer SELFPAY ==
[~2019-04-12] VITALS: Ht 167.6 cm; Wt 70.0 kg
[2019-04-12 12:09] VITALS: BP 118/78
== END 2019-04-12 14:10 | disposition left against medical advice (07) ==
LOC: ER 12:05
DX: Z53.21 Procedure and treatment not carried out due to patient leaving prior to being seen by health care provider (principal)

== ENCOUNTER 2019-04-12 20:34 | Emergency (ER) | payer SELFPAY ==
[~2019-04-12] VITALS: Ht 175.3 cm; Wt 56.0 kg
[2019-04-12] MEDS ORDERED: SODIUM CHLORIDE 0.9% 1,000 ML IV ONE (22:04)
[2019-04-12 22:45] LABS: BASOPHILS % 0.7 % (0.0-2.0); EOSINOPHILS % 1.5 % (0.0-5.0); HEMATOCRIT. 33.1 % (36.0-48.0); LYMPHOCYTES % 14.8 % (20.0-50.0); MEAN CORPUSCULAR HEMOGLOBIN 29.9 pg (28.0-32.0); MEAN CORPUSCULAR VOLUME 90.2 fL (81.0-99.0); MEAN PLATELET VOLUME 7.6 fl (7.4-10.4); MONOCYTES % 4.7 % (2.0-8.0); NEUTROPHILS % 78.3 % (40.0-76.0); PLATELET 622 x1000/uL (130-400); RED BLOOD CELL COUNT 3.67 mill/uL (4.2-5.4); RED CELL DISTRIBUTION WIDTH 18.6 % (11.6-14.6)
[2019-04-12 22:49] LABS: CHLORIDE 109 mEq/L (98-107)
[2019-04-12 22:52] LABS: PROTHROMBIN TIME 10.7 sec (9.6-11.0)
[2019-04-12 22:54] LABS: ETHANOL BLOOD < 10 mg/dL
[2019-04-13] MEDS ORDERED: ACETAMINOPHEN 325MG TABLET PO ONE (01:45)
[2019-04-13 02:15] VITALS: BP 116/78
== END 2019-04-13 02:15 | disposition home or self-care (01) ==
LOC: ER 20:34
DX: R55 Syncope and collapse (principal); M79.605 Pain in left leg; M25.512 Pain in left shoulder; I95.9 Hypotension, unspecified; Z98.890 Other specified postprocedural states; Z96.649 Presence of unspecified artificial hip joint; Z96.652 Presence of left artificial knee joint; Z88.0 Allergy status to penicillin; Z87.828 Personal history of other (healed) physical injury and trauma
CPT/HCPCS: 36415; 72170; 80053; 80320; 84484; 85025; 85610; 93005; 96360; 96361; 99284; J7030; Z7610; G0480

== ENCOUNTER 2019-04-25 22:13 | Inpatient (IN) | payer SELFPAY ==
[~2019-04-25] VITALS: Ht 167.6 cm; Wt 46.7 kg
[2019-04-25] MEDS ORDERED: ACETAMINOPHEN 325MG TABLET PO ONE (22:45)
[2019-04-26 00:02] LABS: BASOPHILS % 0.4 % (0.0-2.0); EOSINOPHILS % 0.8 % (0.0-5.0); HEMATOCRIT. 34.1 % (36.0-48.0); HEMOGLOBIN. 11.2 g/dL (12.0-16.0); LYMPHOCYTES % 11.9 % (20.0-50.0); MEAN CORPUSCULAR HEMOGLOBIN 28.9 pg (28.0-32.0); MEAN CORPUSCULAR VOLUME 88.1 fL (81.0-99.0); MEAN PLATELET VOLUME 7.9 fl (7.4-10.4); MONOCYTES % 5.7 % (2.0-8.0); NEUTROPHILS % 81.2 % (40.0-76.0); PLATELET 336 x1000/uL (130-400); RED BLOOD CELL COUNT 3.87 mill/uL (4.2-5.4); RED CELL DISTRIBUTION WIDTH 17.5 % (11.6-14.6)
[2019-04-26 00:05] LABS: CHLORIDE 104 mEq/L (98-107)
[2019-04-26 00:07] LABS: INR 1.1; PROTHROMBIN TIME 11.5 sec (9.6-11.0)
[2019-04-26] MEDS ORDERED: IBUPROFEN 600MG TABLET PO ONE (00:45)
[2019-04-26] MEDS ORDERED: SODIUM CHLORIDE 0.9% 1,000 ML IV ONE ×2 (00:45→11:15)
[2019-04-26] MEDS ORDERED: POTASSIUM CHLORIDE 20MEQ TABLET SR PO ONE (00:45)
[2019-04-26 02:11] LABS: CLARITY URINE CLOUDY (CLEAR); COLOR URINE YELLOW (YELLOW); KETONES URINE TRACE (NEGATIVE); LEUKOCYTE ESTERASE URINE 1+ (NEGATIVE); NITRITE URINE NEGATIVE (NEGATIVE); OCCULT BLOOD URINE 1+ (NEGATIVE); PH URINE 5.5 (4.5-8.0); PROTEIN URINE 1+ (NEGATIVE); SPECIFIC GRAVITY URINE 1.027 (1.005-1.030)
[2019-04-26 03:05] VITALS: BP 101/65
[2019-04-26 04:12] VITALS: BP_SYST 101
[2019-04-26] MEDS ORDERED: HYDROCODONE/ACETAMINOPHEN 5/325MG TABLET PO PRN (04:15)
[2019-04-26] MEDS ORDERED: MORPHINE SULFATE 2 MG/ML CPJ (NOT FOR IM USE) IV PRN (04:15)
[2019-04-26] MEDS ORDERED: DOCUSATE SODIUM 100MG CAPSULE PO PRN (04:15)
[2019-04-26] MEDS ORDERED: ONDANSETRON HCL 4MG/2ML INJ IV PRN (04:15)
[2019-04-26] MEDS ORDERED: KCL 10MEQ/50ML PREMIX 50 ML IV SCH (05:00)
[2019-04-26] MEDS: SODIUM CHLORIDE 0.9% 1,000 ML IV SCH ×2 (05:52→17:23)
[2019-04-26 08:00] VITALS: BP 97/60
[2019-04-26] MEDS: LEVOFLOXACIN 500MG PREMIX 100 ML IV SCH (08:23)
[2019-04-26] MEDS: ENOXAPARIN 40MG/0.4ML SYR SUBCUT SCH (09:00)
[2019-04-26] MEDS: AMLODIPINE 10MG TABLET PO SCH (09:00)
[2019-04-26 09:30] VITALS: BP 87/51
[2019-04-26] MEDS ORDERED: SODIUM CHLORIDE 0.9% 1000ML BAG (SEPSIS BOLUS) IV NR (11:00)
[2019-04-26] MEDS: ACETAMINOPHEN 325MG TABLET PO PRN ×2 (11:05→20:33)
[2019-04-26 12:00] VITALS: BP 93/60
[2019-04-26 15:49] LABS: CHLORIDE 109 mEq/L (98-107)
[2019-04-26] MEDS ORDERED: GUAIFENESIN 200MG/10ML SUGAR FREE UDC PO PRN (17:00)
[2019-04-26 20:00] VITALS: BP 108/65
[2019-04-27] VITALS: BP 111/71
[2019-04-27 04:00] VITALS: BP 114/65
[2019-04-27] MEDS: LEVOFLOXACIN 500MG PREMIX 100 ML IV SCH (05:57)
[2019-04-27] MEDS: SODIUM CHLORIDE 0.9% 1,000 ML IV SCH (06:15)
[2019-04-27] MEDS: ACETAMINOPHEN 325MG TABLET PO PRN (06:22)
[2019-04-27 08:00] VITALS: BP 134/79
[2019-04-27] MEDS: AMLODIPINE 10MG TABLET PO SCH (09:08)
[2019-04-27] MEDS: ENOXAPARIN 40MG/0.4ML SYR SUBCUT SCH (09:08)
[2019-04-27 12:12] VITALS: BP 116/70
== END 2019-04-27 13:15 | disposition home or self-care (01) | DRG 463 ==
LOC: ER 22:13 → ENRESERV 04-26 02:29 → 7WST 04-26 03:16 → 8WST 04-26 09:13
PROVIDERS: ADMIT Hospitalist; ATTEND Hospitalist
DX: N39.0 Urinary tract infection, site not specified (principal); I95.89 Other hypotension; W18.30XA Fall on same level, unspecified, initial encounter; J44.9 Chronic obstructive pulmonary disease, unspecified; M25.552 Pain in left hip; Y93.89 Activity, other specified; Y92.89 Other specified places as the place of occurrence of the external cause; Y99.8 Other external cause status
CPT/HCPCS: 36415; 71045; 73502; 80048; 93005; 93970; 96374; 99285; J1650; J1956; J2270; J3480; J7030; A4315

== ENCOUNTER 2019-05-02 00:21 | Emergency (ER) | payer SELFPAY ==
[~2019-05-02] VITALS: Ht 160 cm; Wt 59.0 kg
[2019-05-02] MEDS ORDERED: ACETAMINOPHEN 325MG TABLET PO ONE (04:45)
[2019-05-02] MEDS ORDERED: KETOROLAC 15MG/ML VIAL IM ONE (06:30)
[2019-05-02 07:54] VITALS: BP 98/58
== END 2019-05-02 08:38 | disposition home or self-care (01) ==
LOC: ER 00:21
DX: S22.42XA Multiple fractures of ribs, left side, initial encounter for closed fracture (principal); Z88.0 Allergy status to penicillin; I95.9 Hypotension, unspecified; Z98.890 Other specified postprocedural states; W01.0XXA Fall on same level from slipping, tripping and stumbling without subsequent striking against object, initial encounter; Y93.01 Activity, walking, marching and hiking; Y92.89 Other specified places as the place of occurrence of the external cause; Y99.8 Other external cause status
CPT/HCPCS: 71045; 71100; 73502; 96372; 99283; J1885

== ENCOUNTER 2019-05-04 04:50 | Emergency (ER) | payer SELFPAY ==
[~2019-05-04] VITALS: Ht 175.3 cm; Wt 62.0 kg
[2019-05-04] MEDS ORDERED: ACETAMINOPHEN 325MG TABLET PO ONE (07:00)
[2019-05-04 07:57] VITALS: BP 120/75
== END 2019-05-04 08:01 | disposition home or self-care (01) ==
LOC: ER 04:50
DX: M79.605 Pain in left leg (principal); M79.604 Pain in right leg; R05 Cough; I95.9 Hypotension, unspecified; F17.200 Nicotine dependence, unspecified, uncomplicated; Z88.0 Allergy status to penicillin; Z96.649 Presence of unspecified artificial hip joint; Z98.890 Other specified postprocedural states
CPT/HCPCS: 99282

== ENCOUNTER 2019-05-07 07:21 | Emergency (ER) | payer SELFPAY ==
[2019-05-07] MEDS ORDERED: ACETAMINOPHEN 325MG TABLET PO ONE (07:45)
[2019-05-07 11:21] VITALS: BP 119/81
== END 2019-05-07 11:30 | disposition home or self-care (01) ==
LOC: ER 07:44
DX: M79.18 Myalgia, other site (principal); Z88.0 Allergy status to penicillin; Z87.81 Personal history of (healed) traumatic fracture; W01.0XXA Fall on same level from slipping, tripping and stumbling without subsequent striking against object, initial encounter; Y93.89 Activity, other specified; Y92.89 Other specified places as the place of occurrence of the external cause
CPT/HCPCS: 73060; 73502; 99283

== ENCOUNTER 2019-05-09 07:04 | Emergency (ER) | payer SELFPAY | END 2019-05-09 07:46 | disposition left against medical advice (07) | LOC: ER 07:04 | DX: Z53.21 Procedure and treatment not carried out due to patient leaving prior to being seen by health care provider (principal) ==

== ENCOUNTER 2019-05-12 02:11 | Emergency (ER) | payer SELFPAY ==
[~2019-05-12] VITALS: Ht 175.3 cm; Wt 61.0 kg
[2019-05-12 02:14] VITALS: BP 100/53
== END 2019-05-12 05:55 | disposition left against medical advice (07) ==
LOC: ER 02:11
DX: Z53.21 Procedure and treatment not carried out due to patient leaving prior to being seen by health care provider (principal)

== ENCOUNTER 2019-05-12 22:18 | Emergency (ER) | payer SELFPAY | END 2019-05-12 23:20 | disposition left against medical advice (07) | LOC: ER 22:18 | DX: Z53.21 Procedure and treatment not carried out due to patient leaving prior to being seen by health care provider (principal) ==

== ENCOUNTER 2019-05-13 06:08 | Emergency (ER) | payer SELFPAY | END 2019-05-13 07:49 | disposition left against medical advice (07) | LOC: ER 06:08 | DX: M79.669 Pain in unspecified lower leg (principal); Z53.21 Procedure and treatment not carried out due to patient leaving prior to being seen by health care provider ==

== ENCOUNTER 2019-05-16 08:34 | Emergency (ER) | payer SELFPAY ==
[~2019-05-16] VITALS: Ht 175.3 cm; Wt 62.0 kg
[2019-05-16] MEDS ORDERED: HYDROCODONE/ACETAMINOPHEN 5/325MG TABLET PO ONE (09:00)
[2019-05-16] MEDS ORDERED: IBUPROFEN 600MG TABLET PO ONE (10:30)
[2019-05-16 11:10] VITALS: BP 95/52
== END 2019-05-16 11:25 | disposition home or self-care (01) ==
LOC: ER 08:34
DX: S00.83XA Contusion of other part of head, initial encounter (principal); M25.512 Pain in left shoulder; W01.198A Fall on same level from slipping, tripping and stumbling with subsequent striking against other object, initial encounter; Y93.89 Activity, other specified; Y92.89 Other specified places as the place of occurrence of the external cause; F17.210 Nicotine dependence, cigarettes, uncomplicated
CPT/HCPCS: 73030; 99283; Z7610

== ENCOUNTER 2019-05-17 05:25 | Emergency (ER) | payer SELFPAY ==
[~2019-05-17] VITALS: Ht 175.3 cm; Wt 64.0 kg
[2019-05-17 05:56] VITALS: BP 104/80
[2019-05-17] MEDS ORDERED: ACETAMINOPHEN 325MG TABLET PO ONE (07:00)
== END 2019-05-17 08:16 | disposition home or self-care (01) ==
LOC: ER 05:25
DX: M25.552 Pain in left hip (principal); M79.662 Pain in left lower leg; M25.512 Pain in left shoulder; I10 Essential (primary) hypertension
CPT/HCPCS: 71045; 99283

== ENCOUNTER 2019-05-18 00:38 | Emergency (ER) | payer SELFPAY ==
[~2019-05-18] VITALS: Ht 160 cm; Wt 57.0 kg
[2019-05-18 00:44] VITALS: BP 148/82
== END 2019-05-18 02:20 | disposition left against medical advice (07) ==
LOC: ER 00:38
DX: M79.662 Pain in left lower leg (principal); Z53.21 Procedure and treatment not carried out due to patient leaving prior to being seen by health care provider